=== PATIENT | female | born 1975 | race African-American/Black ===

== ENCOUNTER 2021-09-06 13:49 | Inpatient (IN) | payer OTHER ==
[2021-09-06 14:33] LABS: EPI CELLS 9 /uL (0-25.1); HYALINE CASTS 7 /uL (0-3.1); PH,URINE 5.5 (5.0-8.0); URINE APPEARANCE CLOUDY; URINE BACTERIA >9,000 /uL (0-1359); URINE BILIRUBIN NEGATIVE (NEGATIVE); URINE COLOR YELLOW; URINE GLUCOSE (UA) NEGATIVE (NEGATIVE); URINE KETONE NEGATIVE (NEGATIVE); URINE LEUK ESTERASE 1+ (NEGATIVE); URINE NITRITE NEGATIVE (NEGATIVE); URINE PROTEIN NEGATIVE (NEGATIVE); URINE RBC 8 /uL (0-23.9); URINE UROBILINOGEN 0.2 mg/dL (0.2-1.0); URINE WBC 200 /uL (0-25.8)
[2021-09-06] MEDS ORDERED: SODIUM CHLORIDE 0.9% 500 ML INFUS.BAG IV ONE (15:17)
[2021-09-06] MEDS ORDERED: CEFTRIAXONE 1,000 MG in DEXTROSE 5%-WATER - 50 ML IVPB ONE (15:17)
[2021-09-06 15:18] LABS: BASO % 1.1 % (0-2.0); EOS % 3.1 % (0-4.5); HEMATOCRIT 39.1 % (32.4-45.2); HEMOGLOBIN 13.2 GM/dL (10.7-15.3); LYMPH % 49.5 % (8-40); MCH 32.9 pg (25.7-33.7); MCHC 33.9 g/dl (32.0-36.0); MEAN CELL VOLUME 97.2 fl (80-96); MEAN PLT VOLUME 9.1 fl (7.5-11.1); MONO % 9.2 % (3.8-10.2); NEUT % 37.1 % (42.8-82.8); PLATELET COUNT 264 10^3/uL (134-434); RBC 4.02 M/mm3 (3.60-5.2); WHITE BLOOD COUNT 3.2 K/mm3 (4.0-10.0)
[2021-09-06 15:19] LABS: VENOUS BASE EXCESS 1.6 mmol/L (-2-2); VENOUS PCO2 41.3 mmHg (38-52)
[2021-09-06 15:21] LABS: VENOUS PH 7.42 (7.310-7.410)
[2021-09-06 15:25] LABS: INR 1.07 (0.83-1.09); PROTHROMBIN TIME (PATIENT) 12.3 SEC (9.7-13.0)
[2021-09-06 15:28] LABS: ACTIVATED PTT 37.9 SECONDS (25.2-36.5)
[2021-09-06] MEDS ORDERED: CEFTRIAXONE 1 GM/50 ML BAG ONE (15:28)
[2021-09-06 15:43] LABS: CALCIUM 9.2 mg/dL (8.5-10.1)
[2021-09-06 15:44] LABS: ALBUMIN 3.7 g/dl (3.4-5.0); BLOOD UREA NITROGEN 7.2 mg/dL (7-18)
[2021-09-06 15:47] LABS: CREATININE 0.4 mg/dL (0.55-1.3)
[2021-09-06 15:49] LABS: BILIRUBIN,TOTAL 0.1 mg/dL (0.2-1)
[2021-09-06] MEDS ORDERED: diazePAM RECTAL GEL 10 MG KIT (PRE-CALIBRATED) RC PRN (17:28)
[2021-09-06] MEDS: BACLOFEN 10 MG TABLET (FP) GT SCH ×2 (21:50→23:58)
[2021-09-06] MEDS: POLYETHYLENE GLYCOL (HEALTHYLAX) 3350 17 GM PACKET GT SCH (21:50)
[2021-09-06] MEDS ORDERED: POLYETHYLENE GLYCOL (HEALTHYLAX) 3350 17 GM PACKET ONE (21:51)
[2021-09-06] MEDS ORDERED: BACLOFEN 10 MG TABLET (FP) ONE (21:51)
[2021-09-06] MEDS ORDERED: PATIENT'S OWN MEDICATION (NON-FORMULARY) (Olopatadine Hcl [Pataday] 2.5 ML Drops) OU SCH (22:00)
[2021-09-06] MEDS: CALCIUM 500MG/VIT-D 200 UNITS COMBO TABLET (FP) GT SCH (23:57)
[2021-09-06] MEDS: diazePAM 2 MG TABLET GT SCH (23:59)
[2021-09-06] MEDS: Lacosamide 50 MG/5 ML ORAL SOLUTION UNIT CUPS GT SCH (23:59)
[2021-09-07] MEDS: TIZANIDINE HCL 4 MG TABLET GT SCH ×3 (00:09→21:03)
[2021-09-07] MEDS: diazePAM 2 MG TABLET GT SCH ×3 (06:29→21:03)
[2021-09-07 08:10] LABS: HEMATOCRIT 36.4 % (32.4-45.2); HEMOGLOBIN 12.5 GM/dL (10.7-15.3); MCH 33.8 pg (25.7-33.7); MCHC 34.5 g/dl (32.0-36.0); MEAN CELL VOLUME 98.1 fl (80-96); MEAN PLT VOLUME 8.9 fl (7.5-11.1); PLATELET COUNT 219 10^3/uL (134-434); RBC 3.71 M/mm3 (3.60-5.2); WHITE BLOOD COUNT 3.1 K/mm3 (4.0-10.0)
[2021-09-07 08:15] LABS: CALCIUM 8.4 mg/dL (8.5-10.1)
[2021-09-07 08:18] LABS: CREATININE 0.3 mg/dL (0.55-1.3)
[2021-09-07 08:20] LABS: BILIRUBIN,TOTAL 0.2 mg/dL (0.2-1); TOT PROT 6.8 g/dl (6.4-8.2)
[2021-09-07] MEDS ORDERED: DEXTROSE 5%-WATER - 50 ML IVPB ONE (09:29)
[2021-09-07] MEDS ORDERED: cefTRIAXone SODIUM 1 GM VIAL ONE (09:29)
[2021-09-07] MEDS: CEFTRIAXONE 1 GM in DEXTROSE 5%-WATER - 50 ML IVPB SCH (09:41)
[2021-09-07] MEDS: BACLOFEN 10 MG TABLET (FP) GT SCH ×4 (09:42→21:02)
[2021-09-07] MEDS: CALCIUM 500MG/VIT-D 200 UNITS COMBO TABLET (FP) GT SCH ×2 (09:42→21:02)
[2021-09-07] MEDS: Lacosamide 50 MG/5 ML ORAL SOLUTION UNIT CUPS GT SCH ×2 (09:43→21:03)
[2021-09-07] MEDS: ENOXAPARIN NA (PORCINE) 40 MG/0.4 ML DISP.SYRIN SQ SCH (09:43)
[2021-09-07] MEDS: LORATADINE 10 MG TABLET GT SCH (09:43)
[2021-09-07] MEDS: MULTIVIT-MINERALS ORAL LIQUID GT SCH (11:31)
[2021-09-07 15:44] VITALS: BMI 19.5
[2021-09-07] MEDS: POLYETHYLENE GLYCOL (HEALTHYLAX) 3350 17 GM PACKET GT SCH (17:51)
[2021-09-07] MEDS ORDERED: VANCOMYCIN 1 GM/200 ML PREMIX BAG IVPB ONE (20:04)
[2021-09-07] MEDS: RUFINAMIDE 40 MG/ML GT SCH (21:06)
[2021-09-08] MEDS: diazePAM 2 MG TABLET GT SCH ×3 (05:30→22:33)
[2021-09-08] MEDS: RUFINAMIDE 40 MG/ML GT SCH ×4 (05:51→22:32)
[2021-09-08 09:25] LABS: BASO % 1.2 % (0-2.0); EOS % 2.8 % (0-4.5); HEMATOCRIT 36.6 % (32.4-45.2); HEMOGLOBIN 12.4 GM/dL (10.7-15.3); LYMPH % 35.6 % (8-40); MCH 33.4 pg (25.7-33.7); MEAN CELL VOLUME 98.4 fl (80-96); MEAN PLT VOLUME 9.1 fl (7.5-11.1); MONO % 8.9 % (3.8-10.2); NEUT % 51.5 % (42.8-82.8); PLATELET COUNT 250 10^3/uL (134-434); RBC 3.72 M/mm3 (3.60-5.2); RDW 16.7 % (11.6-15.6); WHITE BLOOD COUNT 3.1 K/mm3 (4.0-10.0)
[2021-09-08 09:46] LABS: BLOOD UREA NITROGEN 5.6 mg/dL (7-18)
[2021-09-08 09:50] LABS: CALCIUM 8.3 mg/dL (8.5-10.1); CREATININE 0.3 mg/dL (0.55-1.3)
[2021-09-08] MEDS ORDERED: cefTRIAXone SODIUM 1 GM VIAL ONE (09:58)
[2021-09-08] MEDS ORDERED: DEXTROSE 5%-WATER - 50 ML IVPB ONE (09:58)
[2021-09-08] MEDS: CEFTRIAXONE 1 GM in DEXTROSE 5%-WATER - 50 ML IVPB SCH (10:05)
[2021-09-08] MEDS: ENOXAPARIN NA (PORCINE) 40 MG/0.4 ML DISP.SYRIN SQ SCH (10:05)
[2021-09-08] MEDS: BACLOFEN 10 MG TABLET (FP) GT SCH ×4 (10:06→22:32)
[2021-09-08] MEDS: LORATADINE 10 MG TABLET GT SCH (10:06)
[2021-09-08] MEDS: CALCIUM 500MG/VIT-D 200 UNITS COMBO TABLET (FP) GT SCH ×2 (10:06→22:32)
[2021-09-08] MEDS: MULTIVIT-MINERALS ORAL LIQUID GT SCH (10:06)
[2021-09-08] MEDS: TIZANIDINE HCL 4 MG TABLET GT SCH ×2 (10:06→22:32)
[2021-09-08] MEDS: Lacosamide 50 MG/5 ML ORAL SOLUTION UNIT CUPS GT SCH ×2 (10:06→22:33)
[2021-09-08] MEDS: POLYETHYLENE GLYCOL (HEALTHYLAX) 3350 17 GM PACKET GT SCH (17:00)
[2021-09-09] MEDS: diazePAM 2 MG TABLET GT SCH ×3 (05:47→22:15)
[2021-09-09 08:45] LABS: BASO % 0.5 % (0-2.0); HEMATOCRIT 37.2 % (32.4-45.2); HEMOGLOBIN 12.5 GM/dL (10.7-15.3); LYMPH % 20.9 % (8-40); MCH 33.1 pg (25.7-33.7); MCHC 33.7 g/dl (32.0-36.0); MEAN CELL VOLUME 98.2 fl (80-96); MEAN PLT VOLUME 9.1 fl (7.5-11.1); NEUT % 70.6 % (42.8-82.8); PLATELET COUNT 239 10^3/uL (134-434); RBC 3.79 M/mm3 (3.60-5.2); RDW 16.8 % (11.6-15.6); WHITE BLOOD COUNT 3.7 K/mm3 (4.0-10.0)
[2021-09-09 09:01] LABS: CALCIUM 8.7 mg/dL (8.5-10.1)
[2021-09-09 09:02] LABS: ALBUMIN 3.3 g/dl (3.4-5.0); BLOOD UREA NITROGEN 4.8 mg/dL (7-18); MAGNESIUM 2.3 mg/dL (1.8-2.4)
[2021-09-09 09:05] LABS: CREATININE 0.3 mg/dL (0.55-1.3); PHOSPHOROUS 2.6 mg/dL (2.5-4.9)
[2021-09-09 09:06] LABS: BILIRUBIN,TOTAL 0.2 mg/dL (0.2-1); TOT PROT 7.3 g/dl (6.4-8.2)
[2021-09-09] MEDS ORDERED: cefTRIAXone SODIUM 1 GM VIAL ONE (10:23)
[2021-09-09] MEDS ORDERED: DEXTROSE 5%-WATER - 50 ML IVPB ONE (10:23)
[2021-09-09] MEDS: CEFTRIAXONE 1 GM in DEXTROSE 5%-WATER - 50 ML IVPB SCH (10:28)
[2021-09-09] MEDS: MULTIVIT-MINERALS ORAL LIQUID GT SCH (10:29)
[2021-09-09] MEDS: LORATADINE 10 MG TABLET GT SCH (10:30)
[2021-09-09] MEDS: BACLOFEN 10 MG TABLET (FP) GT SCH ×4 (10:30→22:06)
[2021-09-09] MEDS: CALCIUM 500MG/VIT-D 200 UNITS COMBO TABLET (FP) GT SCH ×2 (10:31→22:06)
[2021-09-09] MEDS: TIZANIDINE HCL 4 MG TABLET GT SCH ×2 (10:32→22:06)
[2021-09-09] MEDS: RUFINAMIDE 40 MG/ML GT SCH ×2 (10:32→22:05)
[2021-09-09] MEDS: ENOXAPARIN NA (PORCINE) 40 MG/0.4 ML DISP.SYRIN SQ SCH (10:33)
[2021-09-09] MEDS: Lacosamide 50 MG/5 ML ORAL SOLUTION UNIT CUPS GT SCH ×2 (10:33→22:05)
[2021-09-09] MEDS: POLYETHYLENE GLYCOL (HEALTHYLAX) 3350 17 GM PACKET GT SCH (18:03)
[2021-09-10] MEDS: diazePAM 2 MG TABLET GT SCH ×3 (07:55→22:56)
[2021-09-10 08:31] LABS: BASO % 0.6 % (0-2.0); EOS % 1.5 % (0-4.5); HEMATOCRIT 35.1 % (32.4-45.2); HEMOGLOBIN 11.8 GM/dL (10.7-15.3); LYMPH % 25.4 % (8-40); MCH 33.2 pg (25.7-33.7); MCHC 33.6 g/dl (32.0-36.0); MEAN PLT VOLUME 9.2 fl (7.5-11.1); MONO % 6.8 % (3.8-10.2); NEUT % 65.7 % (42.8-82.8); PLATELET COUNT 226 10^3/uL (134-434); RBC 3.55 M/mm3 (3.60-5.2); WHITE BLOOD COUNT 5.3 K/mm3 (4.0-10.0)
[2021-09-10 08:46] LABS: BLOOD UREA NITROGEN 10.2 mg/dL (7-18); CALCIUM 8.6 mg/dL (8.5-10.1)
[2021-09-10 08:49] LABS: CREATININE 0.3 mg/dL (0.55-1.3)
[2021-09-10] MEDS ORDERED: predniSONE 20 MG TABLET (UD) PO SCH (10:00)
[2021-09-10] MEDS: MULTIVIT-MINERALS ORAL LIQUID GT SCH (10:50)
[2021-09-10] MEDS: LORATADINE 10 MG TABLET GT SCH (10:50)
[2021-09-10] MEDS: BACLOFEN 10 MG TABLET (FP) GT SCH ×4 (10:50→22:55)
[2021-09-10] MEDS: CALCIUM 500MG/VIT-D 200 UNITS COMBO TABLET (FP) GT SCH ×2 (10:51→22:55)
[2021-09-10] MEDS: Lacosamide 50 MG/5 ML ORAL SOLUTION UNIT CUPS GT SCH ×2 (10:52→22:56)
[2021-09-10] MEDS: TIZANIDINE HCL 4 MG TABLET GT SCH ×2 (10:52→22:55)
[2021-09-10] MEDS: RUFINAMIDE 40 MG/ML GT SCH ×2 (10:52→22:56)
[2021-09-10] MEDS: ENOXAPARIN NA (PORCINE) 40 MG/0.4 ML DISP.SYRIN SQ SCH (10:53)
[2021-09-10] MEDS ORDERED: cefTRIAXone SODIUM 1 GM VIAL ONE (11:08)
[2021-09-10] MEDS ORDERED: DEXTROSE 5%-WATER - 50 ML IVPB ONE (11:08)
[2021-09-10] MEDS: CEFTRIAXONE 1 GM in DEXTROSE 5%-WATER - 50 ML IVPB SCH (11:15)
[2021-09-10] MEDS: POLYETHYLENE GLYCOL (HEALTHYLAX) 3350 17 GM PACKET GT SCH (17:49)
[2021-09-11] MEDS: diazePAM 2 MG TABLET GT SCH ×2 (06:18→13:47)
[2021-09-11 08:17] LABS: BASO % 0.7 % (0-2.0); EOS % 2.4 % (0-4.5); HEMATOCRIT 36.1 % (32.4-45.2); HEMOGLOBIN 12.1 GM/dL (10.7-15.3); LYMPH % 49.3 % (8-40); MCH 33.2 pg (25.7-33.7); MCHC 33.6 g/dl (32.0-36.0); MONO % 10.9 % (3.8-10.2); NEUT % 36.7 % (42.8-82.8); PLATELET COUNT 231 10^3/uL (134-434); RBC 3.64 M/mm3 (3.60-5.2); RDW 17.1 % (11.6-15.6); WHITE BLOOD COUNT 3.9 K/mm3 (4.0-10.0)
[2021-09-11 08:42] LABS: BLOOD UREA NITROGEN 9.2 mg/dL (7-18)
[2021-09-11 08:45] LABS: CREATININE 0.3 mg/dL (0.55-1.3)
[2021-09-11] MEDS ORDERED: cefTRIAXone SODIUM 1 GM VIAL ONE (09:13)
[2021-09-11] MEDS ORDERED: DEXTROSE 5%-WATER - 50 ML IVPB ONE (09:14)
[2021-09-11] MEDS: ENOXAPARIN NA (PORCINE) 40 MG/0.4 ML DISP.SYRIN SQ SCH (09:19)
[2021-09-11] MEDS: Lacosamide 50 MG/5 ML ORAL SOLUTION UNIT CUPS GT SCH (09:19)
[2021-09-11] MEDS: CEFTRIAXONE 1 GM in DEXTROSE 5%-WATER - 50 ML IVPB SCH (09:19)
[2021-09-11] MEDS: MULTIVIT-MINERALS ORAL LIQUID GT SCH (09:20)
[2021-09-11] MEDS: BACLOFEN 10 MG TABLET (FP) GT SCH ×2 (09:20→13:47)
[2021-09-11] MEDS: CALCIUM 500MG/VIT-D 200 UNITS COMBO TABLET (FP) GT SCH (09:20)
[2021-09-11] MEDS: LORATADINE 10 MG TABLET GT SCH (09:20)
[2021-09-11] MEDS: RUFINAMIDE 40 MG/ML GT SCH (09:21)
[2021-09-11] MEDS: TIZANIDINE HCL 4 MG TABLET GT SCH (09:21)
[2021-09-11] MEDS ORDERED: CEPHALEXIN MONOHYDRATE 500 MG CAPSULE (UD) GT SCH (12:00)
[2021-09-11 14:27] VITALS: BP 140/88; PULSE 90; TEMP 97.9
== END 2021-09-11 18:02 | disposition home or self-care (01) | DRG 871 ==
LOC: JER 13:49 → JERBED 16:47 → J8W 22:31 → OBSVTOIN 09-09 08:28
PROVIDERS: ADMIT Internal Medicine; ATTEND Internal Medicine
DX: A41.9 Sepsis, unspecified organism (principal); R53.2 Functional quadriplegia; N39.0 Urinary tract infection, site not specified; G40.909 Epilepsy, unspecified, not intractable, without status epilepticus; G80.9 Cerebral palsy, unspecified; Z93.1 Gastrostomy status; R62.50 Unspecified lack of expected normal physiological development in childhood; B96.1 Klebsiella pneumoniae [K. pneumoniae] as the cause of diseases classified elsewhere; F79 Unspecified intellectual disabilities
CPT/HCPCS: 36415; 71045-TC-FY; 80048; 80053; 81003; 82803; 83605; 83735; 84100; 85025; 85027; 85610; 85730; 87040; 87081; 87086; 87186; 87804; 87807; 93005; 93010; 99285-25; C9803-CS; G0378; J0475; U0003; U0005

== ENCOUNTER 2023-01-10 08:51 | Inpatient (IN) | payer OTHER ==
[2023-01-10] MEDS ORDERED: LACTATED RINGERS SOLUTION 1000 ML INFUS.BAG IV ONE (09:55)
[2023-01-10 10:01] LABS: VENOUS BASE EXCESS 3.7 mmol/L (-2-2); VENOUS O2 SATURATION 82.2 % (70-80); VENOUS PCO2 50.5 mmHg (38-52); VENOUS PH 7.389 (7.310-7.410)
[2023-01-10 10:07] VITALS: BMI 19.5
[2023-01-10 10:13] LABS: EPI CELLS 20 /uL (0-25.1); HYALINE CASTS 1 /uL (0-3.1); PH,URINE 5.5 (5.0-8.0); URINE APPEARANCE CLEAR; URINE BACTERIA >9,000 /uL (0-1359); URINE BILIRUBIN NEGATIVE (NEGATIVE); URINE COLOR YELLOW; URINE GLUCOSE (UA) NEGATIVE (NEGATIVE); URINE KETONE NEGATIVE (NEGATIVE); URINE LEUK ESTERASE 1+ (NEGATIVE); URINE NITRITE POSITIVE (NEGATIVE); URINE PROTEIN TRACE (NEGATIVE); URINE RBC 16 /uL (0-23.9); URINE WBC 31 /uL (0-25.8)
[2023-01-10 10:16] LABS: HEMATOCRIT 40.5 % (32.4-45.2); HEMOGLOBIN 14.1 GM/dL (10.7-15.3); MCH 33.8 pg (25.7-33.7); MCHC 34.9 g/dl (32.0-36.0); MEAN CELL VOLUME 97.1 fl (80-96); MEAN PLT VOLUME 9.7 fl (7.5-11.1); PLATELET COUNT 118 10^3/uL (134-434); RBC 4.17 M/mm3 (3.60-5.2); RDW 16.1 % (11.6-15.6); WHITE BLOOD COUNT 4.3 K/mm3 (4.0-10.0)
[2023-01-10 10:17] LABS: INR 1.09 (0.83-1.09); PROTHROMBIN TIME (PATIENT) 12.6 SEC (9.7-13.0)
[2023-01-10 10:20] LABS: ACTIVATED PTT 33.5 SECONDS (25.2-36.5)
[2023-01-10 10:35] LABS: CHLORIDE 100 mmol/L (98-107); SODIUM 136 mmol/L (136-145)
[2023-01-10 10:36] LABS: ALBUMIN 3.1 g/dl (3.4-5.0); BLOOD UREA NITROGEN 15.5 mg/dL (7-18); CALCIUM 9.7 mg/dL (8.5-10.1); CO2 28 mmol/L (21-32); GLUCOSE,RANDOM 79 mg/dL (74-106)
[2023-01-10 10:40] LABS: BILIRUBIN,TOTAL 0.2 mg/dL (0.2-1); CREATININE 0.6 mg/dL (0.55-1.3); SGOT/AST 126 U/L (15-37)
[2023-01-10 10:43] LABS: ALK PHOS 166 U/L (45-117)
[2023-01-10 10:51] LABS: ANION GAP 8 MMOL/L (8-16); LACTIC ACID 2.4 mmol/L (0.4-2.0); POTASSIUM 6.7 mmol/L (3.5-5.1); SGPT/ALT 87 U/L (13-61)
[2023-01-10] MEDS ORDERED: DEXAMETHASONE SOD PHOSPHATE 10 MG/1 ML VIAL IVPUSH ONE (11:14)
[2023-01-10] MEDS: ALBUTEROL SO4 2.5/IPRATROPIUM 0.5 INH SOL 3 ML VIAL.NEB. NEB SCH ×3 (11:15→11:41)
[2023-01-10] MEDS ORDERED: DEXAMETHASONE SOD PHOSPHATE 10 MG/1 ML VIAL ONE (11:18)
[2023-01-10] MEDS ORDERED: CEFTRIAXONE 1 GM/50 ML BAG ONE (11:20)
[2023-01-10 11:45] LABS: ANISOCYTOSIS 0; MACROCYTOSIS 0
[2023-01-10 12:10] LABS: CALCIUM 9.6 mg/dL (8.5-10.1); POTASSIUM 4.4 mmol/L (3.5-5.1)
[2023-01-10 12:12] LABS: BLOOD UREA NITROGEN 14.7 mg/dL (7-18)
[2023-01-10 12:14] LABS: CREATININE 0.5 mg/dL (0.55-1.3)
[2023-01-10 12:20] LABS: LACTIC ACID 2.8 mmol/L (0.4-2.0)
[2023-01-10] MEDS: LACTATED RINGERS SOLUTION 1,000 ML IV SCH (12:59)
[2023-01-10] MEDS ORDERED: SODIUM CHLORIDE 0.9% 500 ML INFUS.BAG IV ONE (13:06)
[2023-01-10] MEDS: diazePAM 2 MG TABLET GT SCH ×2 (14:53→21:59)
[2023-01-10] MEDS: BACLOFEN 10 MG TABLET (FP) GT SCH ×3 (14:53→21:59)
[2023-01-10] MEDS: Lacosamide 50 MG/5 ML ORAL SOLUTION UNIT CUPS GT SCH (21:59)
[2023-01-10] MEDS: HEPARIN NA (PORCINE) 5,000 UNITS/ML 1ML VIAL SQ SCH (21:59)
[2023-01-11] MEDS: LACTATED RINGERS SOLUTION 1,000 ML IV SCH (01:57)
[2023-01-11] MEDS: diazePAM 2 MG TABLET GT SCH ×3 (05:47→22:54)
[2023-01-11 08:17] LABS: BASO % 0.2 % (0-2.0); EOS % 0.1 % (0-4.5); HEMATOCRIT 32.3 % (32.4-45.2); HEMOGLOBIN 10.9 GM/dL (10.7-15.3); LYMPH % 10.4 % (8-40); MCH 33.6 pg (25.7-33.7); MCHC 33.8 g/dl (32.0-36.0); MEAN CELL VOLUME 99.4 fl (80-96); MEAN PLT VOLUME 10.5 fl (7.5-11.1); MONO % 3.9 % (3.8-10.2); NEUT % 85.4 % (42.8-82.8); PLATELET COUNT 113 10^3/uL (134-434); RBC 3.25 M/mm3 (3.60-5.2); RDW 15.8 % (11.6-15.6); WHITE BLOOD COUNT 11.8 K/mm3 (4.0-10.0)
[2023-01-11 08:22] LABS: INR 1.2 (0.83-1.09); PROTHROMBIN TIME (PATIENT) 13.9 SEC (9.7-13.0)
[2023-01-11 08:25] LABS: ACTIVATED PTT 35.8 SECONDS (25.2-36.5)
[2023-01-11 08:33] LABS: POTASSIUM 3.9 mmol/L (3.5-5.1)
[2023-01-11 08:35] LABS: BLOOD UREA NITROGEN 9.3 mg/dL (7-18); CALCIUM 8.6 mg/dL (8.5-10.1); MAGNESIUM 1.7 mg/dL (1.8-2.4)
[2023-01-11 08:38] LABS: CREATININE 0.3 mg/dL (0.55-1.3)
[2023-01-11 08:39] LABS: BILIRUBIN,TOTAL 0.4 mg/dL (0.2-1)
[2023-01-11 08:44] LABS: N-TERMINAL BNP 250.4 pg/ml (5-125)
[2023-01-11 08:45] LABS: ALBUMIN 2.4 g/dl (3.4-5.0); TOT PROT 5.9 g/dl (6.4-8.2)
[2023-01-11] MEDS ORDERED: Lacosamide 50 MG/5 ML ORAL SOLUTION UNIT CUPS GT SCH (10:00)
[2023-01-11] MEDS: POLYETHYLENE GLYCOL (HEALTHYLAX) 3350 17 GM PACKET GT SCH (10:30)
[2023-01-11] MEDS: CEFTRIAXONE 1 GM in DEXTROSE 5%-WATER - 50 ML IVPB SCH (10:30)
[2023-01-11] MEDS: BACLOFEN 10 MG TABLET (FP) GT SCH ×4 (10:31→22:54)
[2023-01-11] MEDS: HEPARIN NA (PORCINE) 5,000 UNITS/ML 1ML VIAL SQ SCH ×2 (10:31→22:54)
[2023-01-11] MEDS: DEXAMETHASONE SOD PHOSPHATE 10 MG/1 ML VIAL IVPUSH SCH (10:33)
[2023-01-11] MEDS: Lacosamide 50 MG/5 ML ORAL SOLUTION UNIT CUPS GT SCH ×2 (10:34→22:55)
[2023-01-11] MEDS ORDERED: ALBUTEROL SO4 2.5/IPRATROPIUM 0.5 INH SOL 3 ML VIAL.NEB. NEB PRN (11:36)
[2023-01-11] MEDS ORDERED: REMDESIVIR 200 MG in SODIUM CHLORIDE 250 ML IVPB ONE (12:00)
[2023-01-12] MEDS: diazePAM 2 MG TABLET GT SCH ×3 (06:45→22:40)
[2023-01-12 08:21] LABS: BASO % 0.2 % (0-2.0); EOS % 0.2 % (0-4.5); HEMATOCRIT 30.7 % (32.4-45.2); HEMOGLOBIN 10.4 GM/dL (10.7-15.3); LYMPH % 17.2 % (8-40); MCH 33.7 pg (25.7-33.7); MCHC 33.8 g/dl (32.0-36.0); MEAN CELL VOLUME 99.5 fl (80-96); MEAN PLT VOLUME 10.2 fl (7.5-11.1); MONO % 4.8 % (3.8-10.2); NEUT % 77.6 % (42.8-82.8); PLATELET COUNT 106 10^3/uL (134-434); RBC 3.08 M/mm3 (3.60-5.2); RDW 16.4 % (11.6-15.6); WHITE BLOOD COUNT 9.8 K/mm3 (4.0-10.0)
[2023-01-12 09:13] LABS: ALBUMIN 2.5 g/dl (3.4-5.0); BILIRUBIN,TOTAL 0.1 mg/dL (0.2-1); BLOOD UREA NITROGEN 12.1 mg/dL (7-18); CALCIUM 8.5 mg/dL (8.5-10.1); CREATININE 0.3 mg/dL (0.55-1.3); MAGNESIUM 1.9 mg/dL (1.8-2.4); POTASSIUM 3.8 mmol/L (3.5-5.1); TOT PROT 6.1 g/dl (6.4-8.2)
[2023-01-12] MEDS: CEFTRIAXONE 1 GM in DEXTROSE 5%-WATER - 50 ML IVPB SCH (10:32)
[2023-01-12] MEDS: BACLOFEN 10 MG TABLET (FP) GT SCH ×4 (10:33→22:40)
[2023-01-12] MEDS: HEPARIN NA (PORCINE) 5,000 UNITS/ML 1ML VIAL SQ SCH ×2 (10:33→22:40)
[2023-01-12] MEDS: POLYETHYLENE GLYCOL (HEALTHYLAX) 3350 17 GM PACKET GT SCH (10:34)
[2023-01-12] MEDS: DEXAMETHASONE SOD PHOSPHATE 10 MG/1 ML VIAL IVPUSH SCH (10:34)
[2023-01-12] MEDS: Lacosamide 50 MG/5 ML ORAL SOLUTION UNIT CUPS GT SCH ×2 (10:34→22:40)
[2023-01-12] MEDS: REMDESIVIR 100 MG in SODIUM CHLORIDE 250 ML IVPB SCH (13:24)
[2023-01-12] MEDS: SCOPOLAMINE HYDROBROMIDE 1 PATCH PATCH.TD72 TD SCH (17:51)
[2023-01-13] MEDS: diazePAM 2 MG TABLET GT SCH ×3 (05:38→21:44)
[2023-01-13] MEDS: POLYETHYLENE GLYCOL (HEALTHYLAX) 3350 17 GM PACKET GT SCH (09:58)
[2023-01-13] MEDS: Lacosamide 50 MG/5 ML ORAL SOLUTION UNIT CUPS GT SCH ×2 (09:58→21:43)
[2023-01-13] MEDS: HEPARIN NA (PORCINE) 5,000 UNITS/ML 1ML VIAL SQ SCH ×2 (09:59→21:43)
[2023-01-13] MEDS: CEFTRIAXONE 1 GM in DEXTROSE 5%-WATER - 50 ML IVPB SCH (10:52)
[2023-01-13] MEDS: BACLOFEN 10 MG TABLET (FP) GT SCH ×4 (10:53→21:51)
[2023-01-13] MEDS: DEXAMETHASONE 2 MG TABLET PEG SCH (11:02)
[2023-01-13] MEDS: REMDESIVIR 100 MG in SODIUM CHLORIDE 250 ML IVPB SCH (11:18)
[2023-01-13] MEDS ORDERED: hydrALAZINE HCL 20 MG/ML VIAL IVPB PRN (14:26)
[2023-01-13] MEDS ORDERED: FUROSEMIDE 20 MG TABLET (FP) PO ONE (14:32)
[2023-01-13] MEDS: amLODIPine BESYLATE 2.5 MG TABLET (FP) PO SCH (17:15)
[2023-01-14] MEDS: diazePAM 2 MG TABLET GT SCH ×3 (06:07→23:13)
[2023-01-14 08:58] LABS: ALBUMIN 2.4 g/dl (3.4-5.0)
[2023-01-14 09:01] LABS: BILIRUBIN,DIRECT 0.1 mg/dL (0.0-0.2); SGOT/AST 240 U/L (15-37); SGPT/ALT 402 U/L (13-61)
[2023-01-14 09:03] LABS: BILIRUBIN,TOTAL < 0.1 mg/dL (0.2-1); TOT PROT 5.9 g/dl (6.4-8.2)
[2023-01-14 09:06] LABS: ALK PHOS 307 U/L (45-117)
[2023-01-14] MEDS: Lacosamide 50 MG/5 ML ORAL SOLUTION UNIT CUPS GT SCH ×2 (10:47→23:13)
[2023-01-14] MEDS: CEFTRIAXONE 1 GM in DEXTROSE 5%-WATER - 50 ML IVPB SCH (10:48)
[2023-01-14] MEDS: BACLOFEN 10 MG TABLET (FP) GT SCH ×4 (10:48→23:13)
[2023-01-14] MEDS: amLODIPine BESYLATE 2.5 MG TABLET (FP) PO SCH (10:48)
[2023-01-14] MEDS: HEPARIN NA (PORCINE) 5,000 UNITS/ML 1ML VIAL SQ SCH ×2 (10:48→23:11)
[2023-01-14] MEDS: POLYETHYLENE GLYCOL (HEALTHYLAX) 3350 17 GM PACKET GT SCH (10:48)
[2023-01-14] MEDS: COLLAGENASE CLOSTRIDIUM HIST. 30 GRAMS TUBE TP SCH (11:33)
[2023-01-14] MEDS: DEXAMETHASONE 2 MG TABLET PEG SCH (11:33)
[2023-01-14] MEDS: REMDESIVIR 100 MG in SODIUM CHLORIDE 250 ML IVPB SCH (11:34)
[2023-01-15] MEDS: diazePAM 2 MG TABLET GT SCH ×3 (05:29→22:53)
[2023-01-15 07:24] LABS: HEMATOCRIT 35.1 % (32.4-45.2); HEMOGLOBIN 11.7 GM/dL (10.7-15.3); MCH 33.6 pg (25.7-33.7); MCHC 33.4 g/dl (32.0-36.0); MEAN CELL VOLUME 100.5 fl (80-96); MEAN PLT VOLUME 10.5 fl (7.5-11.1); PLATELET COUNT 131 10^3/uL (134-434); RDW 15.4 % (11.6-15.6); WHITE BLOOD COUNT 6.7 K/mm3 (4.0-10.0)
[2023-01-15 08:11] LABS: ALBUMIN 2.5 g/dl (3.4-5.0); BILIRUBIN,TOTAL 0.2 mg/dL (0.2-1); BLOOD UREA NITROGEN 12.2 mg/dL (7-18); CALCIUM 8.4 mg/dL (8.5-10.1); CREATININE 0.3 mg/dL (0.55-1.3); MAGNESIUM 1.9 mg/dL (1.8-2.4); POTASSIUM 3.8 mmol/L (3.5-5.1); TOT PROT 6.2 g/dl (6.4-8.2)
[2023-01-15 08:40] LABS: ANISOCYTOSIS 1+; MACROCYTOSIS 0
[2023-01-15] MEDS: Lacosamide 50 MG/5 ML ORAL SOLUTION UNIT CUPS GT SCH ×2 (10:51→22:52)
[2023-01-15] MEDS: HEPARIN NA (PORCINE) 5,000 UNITS/ML 1ML VIAL SQ SCH ×2 (10:51→22:52)
[2023-01-15] MEDS: CEFTRIAXONE 1 GM in DEXTROSE 5%-WATER - 50 ML IVPB SCH (10:51)
[2023-01-15] MEDS: amLODIPine BESYLATE 2.5 MG TABLET (FP) GT SCH (10:52)
[2023-01-15] MEDS: BACLOFEN 10 MG TABLET (FP) GT SCH ×4 (10:52→22:51)
[2023-01-15] MEDS: COLLAGENASE CLOSTRIDIUM HIST. 30 GRAMS TUBE TP SCH (10:52)
[2023-01-15] MEDS: POLYETHYLENE GLYCOL (HEALTHYLAX) 3350 17 GM PACKET GT SCH (10:52)
[2023-01-15] MEDS: DEXAMETHASONE 2 MG TABLET PEG SCH (11:00)
[2023-01-15] MEDS: SCOPOLAMINE HYDROBROMIDE 1 PATCH PATCH.TD72 TD SCH (17:38)
[2023-01-16] MEDS: ACETAMINOPHEN 650 MG/20.3 ML ORAL SOLUTION (CUPS) GT PRN (05:06)
[2023-01-16] MEDS: diazePAM 2 MG TABLET GT SCH ×3 (05:06→23:05)
[2023-01-16 07:42] LABS: HEMATOCRIT 35.4 % (32.4-45.2); MCH 34.1 pg (25.7-33.7); MCHC 33.9 g/dl (32.0-36.0); MEAN CELL VOLUME 100.7 fl (80-96); MEAN PLT VOLUME 10.9 fl (7.5-11.1); PLATELET COUNT 147 10^3/uL (134-434); RBC 3.51 M/mm3 (3.60-5.2); RDW 15.6 % (11.6-15.6); WHITE BLOOD COUNT 7.9 K/mm3 (4.0-10.0)
[2023-01-16 07:58] LABS: ALBUMIN 2.5 g/dl (3.4-5.0); CALCIUM 8.1 mg/dL (8.5-10.1)
[2023-01-16 07:59] LABS: BLOOD UREA NITROGEN 15.4 mg/dL (7-18)
[2023-01-16 08:01] LABS: CREATININE 0.3 mg/dL (0.55-1.3)
[2023-01-16 08:02] LABS: BILIRUBIN,TOTAL 0.2 mg/dL (0.2-1)
[2023-01-16 09:06] LABS: ANISOCYTOSIS 1+; MACROCYTOSIS 1+
[2023-01-16] MEDS: CEFTRIAXONE 1 GM in DEXTROSE 5%-WATER - 50 ML IVPB SCH (10:05)
[2023-01-16] MEDS: Lacosamide 50 MG/5 ML ORAL SOLUTION UNIT CUPS GT SCH ×2 (10:05→23:05)
[2023-01-16] MEDS: HEPARIN NA (PORCINE) 5,000 UNITS/ML 1ML VIAL SQ SCH ×2 (10:05→23:06)
[2023-01-16] MEDS: POLYETHYLENE GLYCOL (HEALTHYLAX) 3350 17 GM PACKET GT SCH (10:06)
[2023-01-16] MEDS: amLODIPine BESYLATE 2.5 MG TABLET (FP) GT SCH (10:06)
[2023-01-16] MEDS: BACLOFEN 10 MG TABLET (FP) GT SCH ×4 (10:06→23:08)
[2023-01-16] MEDS: DEXAMETHASONE 2 MG TABLET PEG SCH (10:06)
[2023-01-16] MEDS: COLLAGENASE CLOSTRIDIUM HIST. 30 GRAMS TUBE TP SCH (10:07)
[2023-01-17] MEDS: diazePAM 2 MG TABLET GT SCH ×3 (06:00→21:56)
[2023-01-17 08:04] LABS: POTASSIUM 4.1 mmol/L (3.5-5.1)
[2023-01-17 08:05] LABS: CALCIUM 8.3 mg/dL (8.5-10.1)
[2023-01-17 08:06] LABS: ALBUMIN 2.6 g/dl (3.4-5.0); BLOOD UREA NITROGEN 15.8 mg/dL (7-18); MAGNESIUM 1.9 mg/dL (1.8-2.4)
[2023-01-17 08:09] LABS: CREATININE 0.4 mg/dL (0.55-1.3)
[2023-01-17 08:11] LABS: BILIRUBIN,TOTAL 0.3 mg/dL (0.2-1); TOT PROT 6.2 g/dl (6.4-8.2)
[2023-01-17 08:16] LABS: HEMATOCRIT 36.3 % (32.4-45.2); HEMOGLOBIN 12.1 GM/dL (10.7-15.3); MCH 33.9 pg (25.7-33.7); MCHC 33.3 g/dl (32.0-36.0); MEAN CELL VOLUME 101.7 fl (80-96); MEAN PLT VOLUME 10.4 fl (7.5-11.1); PLATELET COUNT 162 10^3/uL (134-434); RBC 3.57 M/mm3 (3.60-5.2); RDW 15.6 % (11.6-15.6); WHITE BLOOD COUNT 8.4 K/mm3 (4.0-10.0)
[2023-01-17] MEDS: HEPARIN NA (PORCINE) 5,000 UNITS/ML 1ML VIAL SQ SCH ×2 (09:32→21:56)
[2023-01-17] MEDS: COLLAGENASE CLOSTRIDIUM HIST. 30 GRAMS TUBE TP SCH (09:32)
[2023-01-17] MEDS: POLYETHYLENE GLYCOL (HEALTHYLAX) 3350 17 GM PACKET GT SCH (09:33)
[2023-01-17] MEDS: Lacosamide 50 MG/5 ML ORAL SOLUTION UNIT CUPS GT SCH ×2 (09:33→21:56)
[2023-01-17] MEDS: amLODIPine BESYLATE 2.5 MG TABLET (FP) GT SCH (09:33)
[2023-01-17] MEDS: BACLOFEN 10 MG TABLET (FP) GT SCH ×4 (09:33→21:56)
[2023-01-17 11:16] LABS: ANISOCYTOSIS 1+; MACROCYTOSIS 1+
[2023-01-18] MEDS: diazePAM 2 MG TABLET GT SCH ×3 (06:11→23:43)
[2023-01-18 08:44] LABS: HEMOGLOBIN 11.8 GM/dL (10.7-15.3); MCH 33.7 pg (25.7-33.7); MCHC 33.7 g/dl (32.0-36.0); MEAN CELL VOLUME 99.9 fl (80-96); MEAN PLT VOLUME 9.2 fl (7.5-11.1); PLATELET COUNT 187 10^3/uL (134-434); RBC 3.51 M/mm3 (3.60-5.2); RDW 15.2 % (11.6-15.6); WHITE BLOOD COUNT 6.5 K/mm3 (4.0-10.0)
[2023-01-18 08:56] LABS: POTASSIUM 4.2 mmol/L (3.5-5.1)
[2023-01-18 08:58] LABS: CALCIUM 8.2 mg/dL (8.5-10.1)
[2023-01-18 08:59] LABS: ALBUMIN 2.6 g/dl (3.4-5.0); BLOOD UREA NITROGEN 14.1 mg/dL (7-18); MAGNESIUM 1.9 mg/dL (1.8-2.4)
[2023-01-18 09:02] LABS: CREATININE 0.3 mg/dL (0.55-1.3)
[2023-01-18 09:03] LABS: BILIRUBIN,TOTAL 0.2 mg/dL (0.2-1)
[2023-01-18 09:04] LABS: TOT PROT 6.2 g/dl (6.4-8.2)
[2023-01-18 09:27] LABS: ANISOCYTOSIS 1+; MACROCYTOSIS 1+
[2023-01-18] MEDS: Lacosamide 50 MG/5 ML ORAL SOLUTION UNIT CUPS GT SCH ×2 (10:03→23:43)
[2023-01-18] MEDS: POLYETHYLENE GLYCOL (HEALTHYLAX) 3350 17 GM PACKET GT SCH (10:04)
[2023-01-18] MEDS: BACLOFEN 10 MG TABLET (FP) GT SCH ×4 (10:04→23:43)
[2023-01-18] MEDS: HEPARIN NA (PORCINE) 5,000 UNITS/ML 1ML VIAL SQ SCH ×2 (10:04→23:43)
[2023-01-18] MEDS: COLLAGENASE CLOSTRIDIUM HIST. 30 GRAMS TUBE TP SCH (10:09)
[2023-01-18] MEDS: amLODIPine BESYLATE 2.5 MG TABLET (FP) GT SCH (10:09)
[2023-01-18] MEDS: SCOPOLAMINE HYDROBROMIDE 1 PATCH PATCH.TD72 TD SCH (17:50)
[2023-01-19] MEDS: diazePAM 2 MG TABLET GT SCH ×3 (06:15→22:51)
[2023-01-19 09:11] LABS: HEMATOCRIT 38.2 % (32.4-45.2); HEMOGLOBIN 12.7 GM/dL (10.7-15.3); MCH 33.6 pg (25.7-33.7); MCHC 33.3 g/dl (32.0-36.0); MEAN CELL VOLUME 101.1 fl (80-96); MEAN PLT VOLUME 9.2 fl (7.5-11.1); PLATELET COUNT 214 10^3/uL (134-434); RBC 3.78 M/mm3 (3.60-5.2); RDW 15.5 % (11.6-15.6); WHITE BLOOD COUNT 6.1 K/mm3 (4.0-10.0)
[2023-01-19 09:28] LABS: POTASSIUM 4.1 mmol/L (3.5-5.1)
[2023-01-19 09:31] LABS: ALBUMIN 2.8 g/dl (3.4-5.0); CALCIUM 8.9 mg/dL (8.5-10.1); MAGNESIUM 1.9 mg/dL (1.8-2.4)
[2023-01-19 09:32] LABS: BLOOD UREA NITROGEN 13.4 mg/dL (7-18)
[2023-01-19 09:34] LABS: CREATININE 0.3 mg/dL (0.55-1.3)
[2023-01-19 09:36] LABS: BILIRUBIN,TOTAL 0.2 mg/dL (0.2-1); TOT PROT 6.7 g/dl (6.4-8.2)
[2023-01-19 10:09] LABS: ANISOCYTOSIS 0; HELMET CELLS 0; HOWELL-JOLLY BODIES 0; MACROCYTOSIS 0; OVALOCYTE 0; ROULEAU 0; SICKELED CELLS 0; TARGET CELLS 0; TEAR DROP CELLS 0; TOXIC GRANULATION 0
[2023-01-19] MEDS: HEPARIN NA (PORCINE) 5,000 UNITS/ML 1ML VIAL SQ SCH ×2 (10:44→22:50)
[2023-01-19] MEDS: Lacosamide 50 MG/5 ML ORAL SOLUTION UNIT CUPS GT SCH ×2 (10:44→22:51)
[2023-01-19] MEDS: POLYETHYLENE GLYCOL (HEALTHYLAX) 3350 17 GM PACKET GT SCH (10:44)
[2023-01-19] MEDS: BACLOFEN 10 MG TABLET (FP) GT SCH ×4 (10:44→22:51)
[2023-01-19] MEDS: COLLAGENASE CLOSTRIDIUM HIST. 30 GRAMS TUBE TP SCH (12:23)
[2023-01-20] MEDS: diazePAM 2 MG TABLET GT SCH ×3 (06:08→22:09)
[2023-01-20 08:56] LABS: BASO % 0.7 % (0-2.0); EOS % 1.4 % (0-4.5); HEMATOCRIT 39.4 % (32.4-45.2); LYMPH % 42.1 % (8-40); MCH 33.5 pg (25.7-33.7); MCHC 33.1 g/dl (32.0-36.0); MEAN CELL VOLUME 101.3 fl (80-96); MEAN PLT VOLUME 9.1 fl (7.5-11.1); MONO % 6.8 % (3.8-10.2); PLATELET COUNT 217 10^3/uL (134-434); RBC 3.89 M/mm3 (3.60-5.2); RDW 15.6 % (11.6-15.6); WHITE BLOOD COUNT 6.9 K/mm3 (4.0-10.0)
[2023-01-20 09:15] LABS: POTASSIUM 4.1 mmol/L (3.5-5.1)
[2023-01-20 09:17] LABS: BLOOD UREA NITROGEN 15.2 mg/dL (7-18); CALCIUM 9.1 mg/dL (8.5-10.1)
[2023-01-20 09:20] LABS: CREATININE 0.4 mg/dL (0.55-1.3)
[2023-01-20 09:22] LABS: BILIRUBIN,TOTAL 0.3 mg/dL (0.2-1); TOT PROT 6.9 g/dl (6.4-8.2)
[2023-01-20] MEDS: HEPARIN NA (PORCINE) 5,000 UNITS/ML 1ML VIAL SQ SCH ×2 (11:18→22:09)
[2023-01-20] MEDS: POLYETHYLENE GLYCOL (HEALTHYLAX) 3350 17 GM PACKET GT SCH (11:18)
[2023-01-20] MEDS: Lacosamide 50 MG/5 ML ORAL SOLUTION UNIT CUPS GT SCH ×2 (11:19→22:08)
[2023-01-20] MEDS: BACLOFEN 10 MG TABLET (FP) GT SCH ×4 (11:19→22:08)
[2023-01-20] MEDS: COLLAGENASE CLOSTRIDIUM HIST. 30 GRAMS TUBE TP SCH (11:21)
[2023-01-21] MEDS: diazePAM 2 MG TABLET GT SCH ×3 (05:48→22:16)
[2023-01-21 08:08] LABS: BASO % 0.6 % (0-2.0); EOS % 1.2 % (0-4.5); HEMOGLOBIN 12.6 GM/dL (10.7-15.3); LYMPH % 32.8 % (8-40); MCHC 34.2 g/dl (32.0-36.0); MEAN CELL VOLUME 99.4 fl (80-96); MEAN PLT VOLUME 8.6 fl (7.5-11.1); MONO % 8.1 % (3.8-10.2); NEUT % 57.3 % (42.8-82.8); PLATELET COUNT 238 10^3/uL (134-434); RBC 3.72 M/mm3 (3.60-5.2); RDW 15.7 % (11.6-15.6); WHITE BLOOD COUNT 7.7 K/mm3 (4.0-10.0)
[2023-01-21] MEDS: ACETAMINOPHEN 650 MG/20.3 ML ORAL SOLUTION (CUPS) GT PRN (08:26)
[2023-01-21 08:27] LABS: POTASSIUM 4.1 mmol/L (3.5-5.1)
[2023-01-21 08:32] LABS: BLOOD UREA NITROGEN 16.8 mg/dL (7-18); CALCIUM 8.6 mg/dL (8.5-10.1)
[2023-01-21 08:36] LABS: CREATININE 0.4 mg/dL (0.55-1.3)
[2023-01-21 08:37] LABS: BILIRUBIN,TOTAL 0.4 mg/dL (0.2-1); TOT PROT 6.7 g/dl (6.4-8.2)
[2023-01-21] MEDS: HEPARIN NA (PORCINE) 5,000 UNITS/ML 1ML VIAL SQ SCH ×2 (09:02→22:16)
[2023-01-21] MEDS: POLYETHYLENE GLYCOL (HEALTHYLAX) 3350 17 GM PACKET GT SCH (09:02)
[2023-01-21] MEDS: Lacosamide 50 MG/5 ML ORAL SOLUTION UNIT CUPS GT SCH ×2 (09:02→22:16)
[2023-01-21] MEDS: BACLOFEN 10 MG TABLET (FP) GT SCH ×4 (09:02→22:15)
[2023-01-21] MEDS: COLLAGENASE CLOSTRIDIUM HIST. 30 GRAMS TUBE TP SCH (13:32)
[2023-01-21] MEDS: SCOPOLAMINE HYDROBROMIDE 1 PATCH PATCH.TD72 TD SCH (17:07)
[2023-01-22] MEDS: diazePAM 2 MG TABLET GT SCH (05:37)
[2023-01-22] MEDS: POLYETHYLENE GLYCOL (HEALTHYLAX) 3350 17 GM PACKET GT SCH (09:00)
[2023-01-22] MEDS: Lacosamide 50 MG/5 ML ORAL SOLUTION UNIT CUPS GT SCH (09:00)
[2023-01-22] MEDS: HEPARIN NA (PORCINE) 5,000 UNITS/ML 1ML VIAL SQ SCH (09:00)
[2023-01-22] MEDS: BACLOFEN 10 MG TABLET (FP) GT SCH (09:01)
[2023-01-22 09:04] VITALS: RESP 18
[2023-01-22] MEDS: COLLAGENASE CLOSTRIDIUM HIST. 30 GRAMS TUBE TP SCH (09:25)
[2023-01-22 12:05] VITALS: BP 132/78; PULSE 85; TEMP 98.8
== END 2023-01-22 14:07 | disposition home or self-care (01) | DRG 177 ==
LOC: JER 08:51 → JERBED 11:52 → J7W 13:20
PROVIDERS: ADMIT Internal Medicine; ATTEND Nurse Practitioner Acute Care
DX: U07.1 COVID-19 (principal); R53.2 Functional quadriplegia; G40.812 Lennox-Gastaut syndrome, not intractable, without status epilepticus; N39.0 Urinary tract infection, site not specified; Z93.1 Gastrostomy status; F79 Unspecified intellectual disabilities; G80.8 Other cerebral palsy; R74.8 Abnormal levels of other serum enzymes; D64.9 Anemia, unspecified; B96.1 Klebsiella pneumoniae [K. pneumoniae] as the cause of diseases classified elsewhere; D69.6 Thrombocytopenia, unspecified; R09.02 Hypoxemia
CPT/HCPCS: 0241U-QW; 36415; 71045-TC-FY; 76705-TC; 80048; 80053; 80076; 81003; 82803; 83605; 83735; 83880; 84100; 84484; 85025; 85610; 85730; 86140; 87040; 87086; 87186; 87635; 93005; 93010; 99285-25; C9399; J0475; J1100; J1644

== ENCOUNTER 2023-08-24 02:26 | Inpatient (IN) | payer OTHER ==
[2023-08-24] MEDS ORDERED: ALBUTEROL SO4 2.5/IPRATROPIUM 0.5 INH SOL 3 ML VIAL.NEB. NEB ONE (03:07)
[2023-08-24] MEDS: ALBUTEROL SO4 2.5/IPRATROPIUM 0.5 INH SOL 3 ML VIAL.NEB. NEB ONE (03:26)
[2023-08-24 04:09] LABS: BASO % 0.2 % (0-2.0); EOS % 0.5 % (0-4.5); HEMOGLOBIN 13.9 GM/dL (10.7-15.3); LYMPH % 13.1 % (8-40); MCH 33.2 pg (25.7-33.7); MEAN CELL VOLUME 97.8 fl (80-96); MEAN PLT VOLUME 10.1 fl (7.5-11.1); MONO % 3.4 % (3.8-10.2); NEUT % 82.8 % (42.8-82.8); PLATELET COUNT 196 10^3/uL (134-434); RBC 4.19 M/mm3 (3.60-5.2); RDW 16.5 % (11.6-15.6); WHITE BLOOD COUNT 11.3 K/mm3 (4.0-10.0)
[2023-08-24 04:16] LABS: VENOUS PCO2 42.5 mmHg (38-52); VENOUS PH 7.404 (7.310-7.410)
[2023-08-24] MEDS ORDERED: DEXAMETHASONE SOD PHOSPHATE 10 MG/1 ML VIAL ONE (04:25)
[2023-08-24 04:32] LABS: INR 1.11 (0.83-1.09); PROTHROMBIN TIME (PATIENT) 12.9 SEC (9.7-13.0)
[2023-08-24 04:34] LABS: ACTIVATED PTT 38.9 SECONDS (25.2-36.5)
[2023-08-24] MEDS: DEXAMETHASONE SOD PHOSPHATE 10 MG/1 ML VIAL IVPUSH ONE (04:35)
[2023-08-24 04:49] LABS: POTASSIUM 4.5 mmol/L (3.5-5.1)
[2023-08-24 04:51] LABS: ALBUMIN 3.2 g/dl (3.4-5.0); CALCIUM 9.4 mg/dL (8.5-10.1)
[2023-08-24 04:52] LABS: BLOOD UREA NITROGEN 11.1 mg/dL (7-18)
[2023-08-24 04:54] LABS: CREATININE 0.4 mg/dL (0.55-1.3)
[2023-08-24 04:56] LABS: BILIRUBIN,TOTAL 0.3 mg/dL (0.2-1); TOT PROT 7.5 g/dl (6.4-8.2)
[2023-08-24] MEDS: REMDESIVIR 200 MG in SODIUM CHLORIDE 250 ML IVPB ONE (05:54)
[2023-08-24] MEDS: DEXTROSE 50%-WATER 25 GM/50 ML DISP.SYRIN IVPUSH ONE (06:28)
[2023-08-24] MEDS ORDERED: AZITHROMYCIN IVPB 500 MG/250 ML BAG IVPB ONE (11:18)
[2023-08-24] MEDS: AZITHROMYCIN IVPB 500 MG in DEXTROSE 5%-WATER - 250 ML IVPB SCH (11:50)
[2023-08-24] MEDS: LACOSAMIDE 10 MG/ML PO SCH (12:00)
[2023-08-24] MEDS ORDERED: LACOSAMIDE 100 MG TABLET PO SCH (12:31)
[2023-08-24] MEDS ORDERED: Lacosamide 50 MG/5 ML ORAL SOLUTION UNIT CUPS PO SCH (12:31)
[2023-08-24] MEDS ORDERED: CEFTRIAXONE 1 GM/50 ML BAG ONE (13:13)
[2023-08-24] MEDS: CEFTRIAXONE 1 GM in DEXTROSE 5%-WATER - 50 ML IVPB SCH (13:23)
[2023-08-24 16:08] VITALS: BMI 15.6
[2023-08-24] MEDS: diazePAM 2 MG TABLET GT SCH (17:07)
[2023-08-24] MEDS: BACLOFEN 10 MG TABLET (FP) GT SCH (17:07)
[2023-08-24] MEDS: Lacosamide 50 MG/5 ML ORAL SOLUTION UNIT CUPS GT SCH (21:41)
[2023-08-25] MEDS: REMDESIVIR 100 MG in SODIUM CHLORIDE 250 ML IVPB SCH (03:16)
[2023-08-25 07:38] LABS: HEMATOCRIT 38.4 % (32.4-45.2); HEMOGLOBIN 13.2 GM/dL (10.7-15.3); MCHC 34.5 g/dl (32.0-36.0); MEAN CELL VOLUME 98.8 fl (80-96); MEAN PLT VOLUME 9.8 fl (7.5-11.1); PLATELET COUNT 146 10^3/uL (134-434); RBC 3.89 M/mm3 (3.60-5.2); RDW 16.9 % (11.6-15.6); WHITE BLOOD COUNT 8.1 K/mm3 (4.0-10.0)
[2023-08-25 07:46] LABS: ALBUMIN 2.8 g/dl (3.4-5.0); CALCIUM 8.5 mg/dL (8.5-10.1); MAGNESIUM 2.2 mg/dL (1.8-2.4)
[2023-08-25 07:47] LABS: BLOOD UREA NITROGEN 13.5 mg/dL (7-18)
[2023-08-25 07:49] LABS: CREATININE 0.3 mg/dL (0.55-1.3); PHOSPHOROUS 3.4 mg/dL (2.5-4.9)
[2023-08-25 07:51] LABS: BILIRUBIN,TOTAL 0.2 mg/dL (0.2-1); TOT PROT 6.9 g/dl (6.4-8.2)
[2023-08-25] MEDS: AZITHROMYCIN IVPB 500 MG/250 ML BAG IVPB SCH (09:00)
[2023-08-25] MEDS: ENOXAPARIN NA (PORCINE) 40 MG/0.4 ML DISP.SYRIN SQ SCH (09:59)
[2023-08-25] MEDS ORDERED: CEFTRIAXONE 1 GM in DEXTROSE 5%-WATER - 50 ML IVPB SCH (10:00)
[2023-08-25] MEDS: DEXAMETHASONE SOD PHOSPHATE 10 MG/1 ML VIAL IVPUSH SCH (10:01)
[2023-08-25] MEDS: Lacosamide 50 MG/5 ML ORAL SOLUTION UNIT CUPS GT SCH (10:04)
[2023-08-25] MEDS: MINERAL OIL/PET HY-PHL TOPICAL OINTMENT 454 GM JAR TP SCH (12:37)
[2023-08-25] MEDS: TIZANIDINE HCL GT SCH (21:34)
[2023-08-25] MEDS: RUFINAMIDE 40 MG/ML GT SCH (21:37)
[2023-08-26] MEDS: AMINO ACIDS/PROTEIN HYDROLYS 30 ML LIQUID.PKT PO SCH (08:53)
[2023-08-26 08:59] LABS: HEMATOCRIT 34.8 % (32.4-45.2); HEMOGLOBIN 11.7 GM/dL (10.7-15.3); INR 1.18 (0.83-1.09); MCH 33.4 pg (25.7-33.7); MCHC 33.6 g/dl (32.0-36.0); MEAN CELL VOLUME 99.3 fl (80-96); MEAN PLT VOLUME 9.4 fl (7.5-11.1); PLATELET COUNT 180 10^3/uL (134-434); PROTHROMBIN TIME (PATIENT) 13.7 SEC (9.7-13.0); WHITE BLOOD COUNT 5.5 K/mm3 (4.0-10.0)
[2023-08-26 09:11] LABS: POTASSIUM 3.8 mmol/L (3.5-5.1)
[2023-08-26 09:20] LABS: ALBUMIN 2.7 g/dl (3.4-5.0); BILIRUBIN,TOTAL 0.2 mg/dL (0.2-1); BLOOD UREA NITROGEN 14.5 mg/dL (7-18); CALCIUM 8.9 mg/dL (8.5-10.1); MAGNESIUM 2.2 mg/dL (1.8-2.4)
[2023-08-26 09:21] LABS: TOT PROT 6.7 g/dl (6.4-8.2)
[2023-08-26 09:23] LABS: CREATININE 0.3 mg/dL (0.55-1.3)
[2023-08-27 08:06] LABS: HEMOGLOBIN 12.7 GM/dL (10.7-15.3); MCH 33.7 pg (25.7-33.7); MCHC 34.4 g/dl (32.0-36.0); MEAN CELL VOLUME 97.9 fl (80-96); MEAN PLT VOLUME 9.6 fl (7.5-11.1); PLATELET COUNT 173 10^3/uL (134-434); RBC 3.78 M/mm3 (3.60-5.2); RDW 16.7 % (11.6-15.6)
[2023-08-27 08:21] LABS: BLOOD UREA NITROGEN 17.9 mg/dL (7-18); CALCIUM 8.6 mg/dL (8.5-10.1); MAGNESIUM 2.3 mg/dL (1.8-2.4)
[2023-08-27 08:22] LABS: ALBUMIN 2.8 g/dl (3.4-5.0)
[2023-08-27 08:25] LABS: CREATININE 0.3 mg/dL (0.55-1.3)
[2023-08-27 08:26] LABS: BILIRUBIN,TOTAL 0.2 mg/dL (0.2-1); TOT PROT 6.8 g/dl (6.4-8.2)
[2023-08-27] MEDS: REMDESIVIR 100 MG in SODIUM CHLORIDE 250 ML IVPB SCH (11:04)
[2023-08-28] MEDS: ACETAMINOPHEN 1000 MG/100 ML BAG IVPB PRN (08:40)
[2023-08-28 09:19] LABS: HEMATOCRIT 39.1 % (32.4-45.2); HEMOGLOBIN 13.3 GM/dL (10.7-15.3); MCH 33.6 pg (25.7-33.7); MCHC 34.1 g/dl (32.0-36.0); MEAN CELL VOLUME 98.7 fl (80-96); MEAN PLT VOLUME 9.4 fl (7.5-11.1); RBC 3.96 M/mm3 (3.60-5.2); RDW 16.6 % (11.6-15.6)
[2023-08-28 09:22] LABS: PLATELET COUNT 154 10^3/uL (134-434)
[2023-08-28 09:45] LABS: POTASSIUM 4.1 mmol/L (3.5-5.1)
[2023-08-28 09:50] LABS: CALCIUM 9.3 mg/dL (8.5-10.1); MAGNESIUM 2.3 mg/dL (1.8-2.4)
[2023-08-28 09:51] LABS: ALBUMIN 3.3 g/dl (3.4-5.0)
[2023-08-28 09:54] LABS: CREATININE 0.5 mg/dL (0.55-1.3)
[2023-08-28 09:55] LABS: BILIRUBIN,TOTAL 0.3 mg/dL (0.2-1); TOT PROT 7.5 g/dl (6.4-8.2)
[2023-08-29 08:20] LABS: HEMATOCRIT 33.9 % (32.4-45.2); HEMOGLOBIN 11.5 GM/dL (10.7-15.3); MCH 33.7 pg (25.7-33.7); MCHC 33.9 g/dl (32.0-36.0); MEAN CELL VOLUME 99.2 fl (80-96); MEAN PLT VOLUME 9.4 fl (7.5-11.1); PLATELET COUNT 179 10^3/uL (134-434); RBC 3.42 M/mm3 (3.60-5.2); RDW 16.5 % (11.6-15.6); WHITE BLOOD COUNT 5.6 K/mm3 (4.0-10.0)
[2023-08-29 08:38] LABS: POTASSIUM 3.7 mmol/L (3.5-5.1)
[2023-08-29 08:42] LABS: CALCIUM 8.7 mg/dL (8.5-10.1)
[2023-08-29 08:43] LABS: ALBUMIN 2.9 g/dl (3.4-5.0); MAGNESIUM 2.4 mg/dL (1.8-2.4)
[2023-08-29 08:46] LABS: CREATININE 0.4 mg/dL (0.55-1.3)
[2023-08-29 08:47] LABS: BILIRUBIN,TOTAL 0.2 mg/dL (0.2-1)
[2023-08-29 08:48] LABS: TOT PROT 6.4 g/dl (6.4-8.2)
[2023-08-31 11:57] VITALS: BP 115/68; PULSE 76; RESP 20; TEMP 97.5
== END 2023-08-31 14:28 | disposition home or self-care (01) | DRG 177 ==
LOC: JER 02:26 → JERBED 04:15 → J7W 14:17
PROVIDERS: ADMIT Internal Medicine; ATTEND Nurse Practitioner Family
PROC: XW033E5 Introduction of Remdesivir Anti-infective into Peripheral Vein, Percutaneous Approach, New Technology Group 5 (ICD-10-PCS; principal; 2023-08-24)
DX: U07.1 COVID-19 (principal); J12.82 Pneumonia due to coronavirus disease 2019; G40.812 Lennox-Gastaut syndrome, not intractable, without status epilepticus; J98.11 Atelectasis; R64 Cachexia; Z68.1 Body mass index [BMI] 19.9 or less, adult; G80.9 Cerebral palsy, unspecified; G40.909 Epilepsy, unspecified, not intractable, without status epilepticus; Z93.1 Gastrostomy status; R09.02 Hypoxemia; F79 Unspecified intellectual disabilities
CPT/HCPCS: 0241U-QW; 36415; 71045-TC-FY; 71250-TC; 80053; 82803; 82962; 83735; 84100; 85025; 85027; 85610; 85730; 86140; 87635; 93005; 93010; 99285-25; J0131; J0248; J0475; J1100

== ENCOUNTER 2023-10-03 19:12 | Inpatient (IN) | payer OTHER ==
[2023-10-03] MEDS: PIPERACILLIN/TAZOB 4.5 GM 4.5 GM in DEXTROSE 5%-WATER 100 ML IVPB ONE (20:00)
[2023-10-03 20:31] LABS: HEMATOCRIT 35.2 % (32.4-45.2); HEMOGLOBIN 12.1 GM/dL (10.7-15.3); MCH 34.7 pg (25.7-33.7); MCHC 34.4 g/dl (32.0-36.0); MEAN CELL VOLUME 100.7 fl (80-96); MEAN PLT VOLUME 9.9 fl (7.5-11.1); PLATELET COUNT 96 10^3/uL (134-434); RBC 3.49 M/mm3 (3.60-5.2); RDW 16.8 % (11.6-15.6); WHITE BLOOD COUNT 4.7 K/mm3 (4.0-10.0)
[2023-10-03 20:39] LABS: INR 1.12 (0.83-1.09); PROTHROMBIN TIME (PATIENT) 12.6 SEC (9.7-13.0)
[2023-10-03 20:45] LABS: EPI CELLS >36 /uL (0-25.1); HYALINE CASTS 30 /uL (0-3.1); URINE APPEARANCE CLOUDY; URINE BACTERIA 31 /uL (0-1359); URINE BILIRUBIN NEGATIVE (NEGATIVE); URINE COLOR DK YELLOW; URINE GLUCOSE (UA) NEGATIVE (NEGATIVE); URINE KETONE NEGATIVE (NEGATIVE); URINE LEUK ESTERASE TRACE (NEGATIVE); URINE NITRITE NEGATIVE (NEGATIVE); URINE PROTEIN 1+ (NEGATIVE); URINE RBC 5 /uL (0-23.9); URINE WBC 24 /uL (0-25.8); VENOUS BASE EXCESS 1.1 mmol/L (-2-2); VENOUS PH 7.37 (7.310-7.410)
[2023-10-03] MEDS ORDERED: PIPERACILLIN/TAZOB 4.5 GM 4.5 GM/100 ML BAG IVPB ONE (20:47)
[2023-10-03] MEDS ORDERED: VANCOMYCIN 1 GRAM (PRE-DOCKED) 1,000 MG/250 ML BAG IVPB ONE (20:47)
[2023-10-03 21:07] LABS: ANISOCYTOSIS 1+; MACROCYTOSIS 1+
[2023-10-03 21:08] LABS: PLATELET ESTIMATE DECREASED
[2023-10-03] MEDS: SODIUM CHLORIDE 0.9% 500 ML INFUS.BAG IV ONE (21:16)
[2023-10-03 21:49] LABS: POTASSIUM 3.6 mmol/L (3.5-5.1)
[2023-10-03 21:51] LABS: ALBUMIN 2.8 g/dl (3.4-5.0); BLOOD UREA NITROGEN 12.9 mg/dL (7-18); CALCIUM 9.4 mg/dL (8.5-10.1)
[2023-10-03] MEDS ORDERED: ACETAMINOPHEN INJECTION 100 ML IVPB ONE (21:51)
[2023-10-03 21:54] LABS: CREATININE 0.7 mg/dL (0.55-1.3)
[2023-10-03 21:56] LABS: BILIRUBIN,TOTAL 0.4 mg/dL (0.2-1); TOT PROT 6.6 g/dl (6.4-8.2)
[2023-10-03] MEDS: VANCOMYCIN 1,000 MG in DEXTROSE 5%-WATER - 250 ML IVPB ONE (22:08)
[2023-10-03] MEDS: ACETAMINOPHEN 1000 MG/100 ML BAG IVPB ONE (22:08)
[2023-10-04] MEDS ORDERED: IBUPROFEN 800 MG/8 ML IJ IVPB PRN (00:23)
[2023-10-04] MEDS: SODIUM CHLORIDE 1,000 ML IV SCH (00:55)
[2023-10-04] MEDS ORDERED: ACETAMINOPHEN 1000 MG/100 ML BAG IVPB PRN (00:58)
[2023-10-04] MEDS: VANCOMYCIN/WATER FOR INJ (PEG) 1,000 MG/200 ML BAG IVPB SCH (08:19)
[2023-10-04] MEDS: VANCOMYCIN 1,000 MG in DEXTROSE 5%-WATER - 250 ML IVPB SCH (08:19)
[2023-10-04 08:50] LABS: HEMATOCRIT 37.1 % (32.4-45.2); HEMOGLOBIN 12.4 GM/dL (10.7-15.3); MCH 33.7 pg (25.7-33.7); MCHC 33.5 g/dl (32.0-36.0); MEAN CELL VOLUME 100.8 fl (80-96); MEAN PLT VOLUME 9.8 fl (7.5-11.1); PLATELET COUNT 88 10^3/uL (134-434); RBC 3.68 M/mm3 (3.60-5.2); RDW 16.3 % (11.6-15.6); WHITE BLOOD COUNT 4.6 K/mm3 (4.0-10.0)
[2023-10-04 09:10] LABS: POTASSIUM 3.4 mmol/L (3.5-5.1)
[2023-10-04 09:15] LABS: CALCIUM 9.3 mg/dL (8.5-10.1)
[2023-10-04 09:16] LABS: ALBUMIN 2.9 g/dl (3.4-5.0); BLOOD UREA NITROGEN 10.6 mg/dL (7-18)
[2023-10-04 09:19] LABS: CREATININE 0.4 mg/dL (0.55-1.3); PHOSPHOROUS 3.4 mg/dL (2.5-4.9)
[2023-10-04 09:20] LABS: BILIRUBIN,TOTAL 0.6 mg/dL (0.2-1); TOT PROT 6.7 g/dl (6.4-8.2)
[2023-10-04] MEDS: PIPERACILLIN/TAZOB 3.375 GM 3.375 GM in DEXTROSE 5%-WATER - 50 ML IVPB SCH (09:39)
[2023-10-04] MEDS: ENOXAPARIN NA (PORCINE) 40 MG/0.4 ML DISP.SYRIN SQ SCH (09:39)
[2023-10-04] MEDS ORDERED: PIPERACILLIN/TAZOB 3.375 GM 3.375 GM in DEXTROSE 5%-WATER - 50 ML IVPB SCH (10:00)
[2023-10-04] MEDS ORDERED: diazePAM RECTAL GEL 10 MG KIT (PRE-CALIBRATED) RC PRN (14:05)
[2023-10-04 14:43] VITALS: BMI 26.7
[2023-10-04] MEDS: ALBUTEROL SO4 2.5/IPRATROPIUM 0.5 INH SOL 3 ML VIAL.NEB. NEB SCH (16:31)
[2023-10-04] MEDS: BACLOFEN 10 MG TABLET (FP) GT SCH (17:03)
[2023-10-04] MEDS: D5-1/2NS+10 MEQ KCL - 10 MEQ/1,000 ML INFUS.BAG IV SCH (17:03)
[2023-10-04] MEDS: diazePAM 2 MG TABLET GT SCH (22:49)
[2023-10-04] MEDS: Lacosamide 50 MG/5 ML ORAL SOLUTION UNIT CUPS GT SCH (22:49)
[2023-10-05 08:57] LABS: BASO % 0.3 % (0-2.0); EOS % 1.3 % (0-4.5); HEMATOCRIT 35.9 % (32.4-45.2); HEMOGLOBIN 12.3 GM/dL (10.7-15.3); LYMPH % 18.5 % (8-40); MCH 34.4 pg (25.7-33.7); MCHC 34.4 g/dl (32.0-36.0); MEAN CELL VOLUME 100.1 fl (80-96); MEAN PLT VOLUME 9.1 fl (7.5-11.1); MONO % 6.7 % (3.8-10.2); NEUT % 73.2 % (42.8-82.8); PLATELET COUNT 96 10^3/uL (134-434); RBC 3.58 M/mm3 (3.60-5.2); RDW 16.3 % (11.6-15.6)
[2023-10-05 09:15] LABS: POTASSIUM 3.6 mmol/L (3.5-5.1)
[2023-10-05 09:20] LABS: CALCIUM 8.9 mg/dL (8.5-10.1)
[2023-10-05 09:21] LABS: ALBUMIN 2.6 g/dl (3.4-5.0); BLOOD UREA NITROGEN 12.6 mg/dL (7-18)
[2023-10-05 09:23] LABS: CREATININE 0.3 mg/dL (0.55-1.3)
[2023-10-05 09:26] LABS: BILIRUBIN,TOTAL 0.6 mg/dL (0.2-1); TOT PROT 6.3 g/dl (6.4-8.2)
[2023-10-06 08:40] LABS: BASO % 0.4 % (0-2.0); EOS % 2.5 % (0-4.5); HEMATOCRIT 31.8 % (32.4-45.2); HEMOGLOBIN 11.2 GM/dL (10.7-15.3); LYMPH % 37.8 % (8-40); MCH 34.8 pg (25.7-33.7); MCHC 35.2 g/dl (32.0-36.0); MEAN CELL VOLUME 98.9 fl (80-96); MEAN PLT VOLUME 9.1 fl (7.5-11.1); MONO % 7.5 % (3.8-10.2); NEUT % 51.8 % (42.8-82.8); PLATELET COUNT 115 10^3/uL (134-434); RBC 3.22 M/mm3 (3.60-5.2); RDW 16.1 % (11.6-15.6); WHITE BLOOD COUNT 3.2 K/mm3 (4.0-10.0)
[2023-10-06 08:53] LABS: POTASSIUM 3.2 mmol/L (3.5-5.1)
[2023-10-06 09:00] LABS: CALCIUM 8.6 mg/dL (8.5-10.1)
[2023-10-06 09:01] LABS: ALBUMIN 2.6 g/dl (3.4-5.0); MAGNESIUM 2.3 mg/dL (1.8-2.4)
[2023-10-06 09:04] LABS: CREATININE 0.3 mg/dL (0.55-1.3)
[2023-10-06 09:05] LABS: BILIRUBIN,TOTAL 0.4 mg/dL (0.2-1); TOT PROT 6.2 g/dl (6.4-8.2)
[2023-10-07 07:56] LABS: BASO % 0.8 % (0-2.0); EOS % 3.1 % (0-4.5); HEMATOCRIT 32.1 % (32.4-45.2); HEMOGLOBIN 11.1 GM/dL (10.7-15.3); MCH 34.4 pg (25.7-33.7); MCHC 34.5 g/dl (32.0-36.0); MEAN CELL VOLUME 99.9 fl (80-96); MEAN PLT VOLUME 9.1 fl (7.5-11.1); MONO % 9.7 % (3.8-10.2); NEUT % 56.4 % (42.8-82.8); PLATELET COUNT 119 10^3/uL (134-434); RBC 3.22 M/mm3 (3.60-5.2); RDW 15.7 % (11.6-15.6); WHITE BLOOD COUNT 4.2 K/mm3 (4.0-10.0)
[2023-10-07 08:10] LABS: POTASSIUM 3.6 mmol/L (3.5-5.1)
[2023-10-07 08:16] LABS: CALCIUM 8.6 mg/dL (8.5-10.1)
[2023-10-07 08:17] LABS: ALBUMIN 2.6 g/dl (3.4-5.0); BLOOD UREA NITROGEN 5.7 mg/dL (7-18); MAGNESIUM 2.2 mg/dL (1.8-2.4)
[2023-10-07 08:20] LABS: BILIRUBIN,TOTAL 0.4 mg/dL (0.2-1); CREATININE 0.3 mg/dL (0.55-1.3); TOT PROT 6.3 g/dl (6.4-8.2)
[2023-10-07] MEDS ORDERED: LORazepam 2 MG/ML SDV VIAL IVPUSH PRN (10:27)
[2023-10-07] MEDS: CYCLOBENZAPRINE HCL 5 MG TABLET PO SCH (11:07)
[2023-10-07] MEDS: LACTOBACILLUS ACIDOPHILUS 1 TABLET GT SCH (11:07)
[2023-10-07] MEDS: PANTOPRAZOLE SODIUM 40 MG VIAL IVPUSH SCH (11:07)
[2023-10-07] MEDS: amLODIPine BESYLATE 2.5 MG TABLET (FP) PO ONE (11:41)
[2023-10-07] MEDS: PATIENT'S OWN MEDICATION (NON-FORMULARY) (Tizanidine Hcl 4 MG Tablet) GT SCH (11:43)
[2023-10-07] MEDS: RUFINAMIDE GT SCH (22:52)
[2023-10-07] MEDS: MULTIVIT-MINERALS ORAL LIQUID GT SCH (22:52)
[2023-10-07] MEDS: OLOPATADINE HCL OU SCH (22:53)
[2023-10-08 09:07] LABS: POTASSIUM 3.7 mmol/L (3.5-5.1)
[2023-10-08 09:11] LABS: ALBUMIN 2.4 g/dl (3.4-5.0); CALCIUM 8.6 mg/dL (8.5-10.1)
[2023-10-08 09:15] LABS: CREATININE 0.3 mg/dL (0.55-1.3)
[2023-10-08 09:16] LABS: BILIRUBIN,TOTAL 0.3 mg/dL (0.2-1)
[2023-10-08 10:06] LABS: HEMATOCRIT 33.2 % (32.4-45.2); HEMOGLOBIN 11.4 GM/dL (10.7-15.3); MCH 34.1 pg (25.7-33.7); MCHC 34.2 g/dl (32.0-36.0); MEAN CELL VOLUME 99.6 fl (80-96); PLATELET COUNT 126 10^3/uL (134-434); RBC 3.33 M/mm3 (3.60-5.2); RDW 16.1 % (11.6-15.6); WHITE BLOOD COUNT 3.2 K/mm3 (4.0-10.0)
[2023-10-08 10:31] LABS: ANISOCYTOSIS 0; MACROCYTOSIS 0
[2023-10-09 08:40] LABS: HEMATOCRIT 33.5 % (32.4-45.2); HEMOGLOBIN 11.7 GM/dL (10.7-15.3); MCH 34.7 pg (25.7-33.7); MCHC 34.8 g/dl (32.0-36.0); MEAN CELL VOLUME 99.7 fl (80-96); MEAN PLT VOLUME 8.4 fl (7.5-11.1); PLATELET COUNT 162 10^3/uL (134-434); RBC 3.36 M/mm3 (3.60-5.2); RDW 15.9 % (11.6-15.6); WHITE BLOOD COUNT 3.7 K/mm3 (4.0-10.0)
[2023-10-09 08:56] LABS: BLOOD UREA NITROGEN 4.9 mg/dL (7-18)
[2023-10-09 08:58] LABS: ALBUMIN 2.6 g/dl (3.4-5.0); CALCIUM 8.4 mg/dL (8.5-10.1)
[2023-10-09 09:02] LABS: BILIRUBIN,TOTAL 0.5 mg/dL (0.2-1); CREATININE 0.2 mg/dL (0.55-1.3)
[2023-10-09 09:03] LABS: TOT PROT 6.3 g/dl (6.4-8.2)
[2023-10-09 09:40] LABS: ANISOCYTOSIS 1+; MACROCYTOSIS 0
[2023-10-09] MEDS ORDERED: AMOX TR/POT CLAV 875MG/125MG TABLETS (FP) PO SCH (17:30)
[2023-10-09] MEDS: AMOXICILLIN ORAL SUSPENSION - 250 MG/5 ML GT SCH (22:31)
[2023-10-11] MEDS: metroNIDAZOLE 250 MG TABLET PEG SCH (18:09)
[2023-10-12] MEDS: FAMOTIDINE 20 MG/2.5 ML ORAL LIQUID PEG SCH (14:23)
[2023-10-13] MEDS: ACETAMINOPHEN 650 MG/20.3 ML ORAL SOLUTION (CUPS) PO ONE (04:38)
[2023-10-13] MEDS: ACETAMINOPHEN 650 MG/20.3 ML ORAL SOLUTION (CUPS) GT ONE (05:04)
[2023-10-13] MEDS: diazePAM 2 MG TABLET GT SCH (06:39)
[2023-10-13] MEDS: Lacosamide 50 MG/5 ML ORAL SOLUTION UNIT CUPS GT SCH (06:39)
[2023-10-13] MEDS: POLYETHYLENE GLYCOL (HEALTHYLAX) 3350 17 GM PACKET GT ONE (10:21)
[2023-10-13] MEDS: CYCLOBENZAPRINE HCL 5 MG TABLET GT SCH (22:49)
[2023-10-14 11:45] VITALS: BP 105/77; PULSE 88; RESP 20; TEMP 97.6
== END 2023-10-14 13:18 | disposition home or self-care (01) | DRG 871 ==
LOC: JER 19:12 → JERBED 21:48 → J8W 10-04 01:40
PROVIDERS: ADMIT Internal Medicine; ATTEND Nurse Practitioner Acute Care
DX: A41.89 Other specified sepsis (principal); J69.0 Pneumonitis due to inhalation of food and vomit; J96.01 Acute respiratory failure with hypoxia; R53.2 Functional quadriplegia; G40.812 Lennox-Gastaut syndrome, not intractable, without status epilepticus; I31.39 Other pericardial effusion (noninflammatory); J98.11 Atelectasis; R50.9 Fever, unspecified; K76.0 Fatty (change of) liver, not elsewhere classified; D69.6 Thrombocytopenia, unspecified; I10 Essential (primary) hypertension; R00.0 Tachycardia, unspecified; F79 Unspecified intellectual disabilities; G80.9 Cerebral palsy, unspecified; K80.20 Calculus of gallbladder without cholecystitis without obstruction; Z99.81 Dependence on supplemental oxygen
CPT/HCPCS: 0241U-QW; 36415; 71045-TC-FY; 71250-TC; 80053; 81003; 82550; 82803; 83605; 83735; 84100; 84484; 85025; 85027; 85610; 85730; 87040; 87086; 87635; 93005; 93010; 93306-TC; 94640; 99285-25; J0131; J0475

== ENCOUNTER 2023-12-01 12:49 | Emergency (ER) | payer OTHER ==
[2023-12-01 13:02] VITALS: TEMP 98.8; BMI 23.3
[2023-12-01] MEDS ORDERED: ACETAMINOPHEN INJECTION 100 ML IVPB ONE (14:17)
[2023-12-01] MEDS: ACETAMINOPHEN 1000 MG/100 ML BAG IVPB ONE (14:37)
[2023-12-01 17:27] VITALS: BP 148/71; PULSE 71; RESP 18
== END 2023-12-01 18:00 ==
LOC: JER 12:49
PROC: 0HQ1XZZ Repair Face Skin, External Approach (ICD-10-PCS; principal; 2023-12-01)
PROC: 3E033NZ Introduction of Analgesics, Hypnotics, Sedatives into Peripheral Vein, Percutaneous Approach (ICD-10-PCS; 2023-12-01)
DX: S01.81XA Laceration without foreign body of other part of head, initial encounter (principal); G80.9 Cerebral palsy, unspecified; W22.8XXA Striking against or struck by other objects, initial encounter; Y92.122 Bedroom in nursing home as the place of occurrence of the external cause
CPT/HCPCS: 12011; 70450-TC; 96374; 99284-25; J0131

== ENCOUNTER 2024-01-16 12:12 | Inpatient (IN) | payer OTHER ==
[2024-01-16 13:15] LABS: BASO % 0.4 % (0-2.0); EOS % 0.9 % (0-4.5); HEMATOCRIT 40.3 % (32.4-45.2); LYMPH % 23.8 % (8-40); MCH 34.6 pg (25.7-33.7); MCHC 34.8 g/dl (32.0-36.0); MEAN CELL VOLUME 99.3 fl (80-96); MEAN PLT VOLUME 9.8 fl (7.5-11.1); MONO % 6.4 % (3.8-10.2); NEUT % 68.5 % (42.8-82.8); PLATELET COUNT 175 10^3/uL (134-434); RBC 4.06 M/mm3 (3.60-5.2); RDW 14.1 % (11.6-15.6); WHITE BLOOD COUNT 5.7 K/mm3 (4.0-10.0)
[2024-01-16 13:21] LABS: VENOUS BASE EXCESS 1.3 mmol/L (-2-2); VENOUS O2 SATURATION 83.5 % (70-80); VENOUS PCO2 51.8 mmHg (38-52); VENOUS PH 7.349 (7.310-7.410)
[2024-01-16 13:34] LABS: POTASSIUM 4.3 mmol/L (3.5-5.1)
[2024-01-16 13:35] LABS: ALBUMIN 3.6 g/dl (3.4-5.0); BLOOD UREA NITROGEN 11.7 mg/dL (7-18); CALCIUM 9.8 mg/dL (8.5-10.1)
[2024-01-16 13:39] LABS: CREATININE 0.6 mg/dL (0.55-1.3)
[2024-01-16 13:40] LABS: BILIRUBIN,TOTAL 0.4 mg/dL (0.2-1); TOT PROT 7.6 g/dl (6.4-8.2)
[2024-01-16] MEDS ORDERED: VANCOMYCIN 750 MG in DEXTROSE 5%-WATER - 250 ML IVPB ONE (14:13)
[2024-01-16] MEDS ORDERED: diazePAM RECTAL GEL 10 MG KIT (PRE-CALIBRATED) RC PRN (14:23)
[2024-01-16 14:48] LABS: INR 1.03 (0.83-1.09); PROTHROMBIN TIME (PATIENT) 11.8 SEC (9.7-13.0)
[2024-01-16 14:50] LABS: ACTIVATED PTT 39.5 SECONDS (25.2-36.5)
[2024-01-16 14:55] LABS: POTASSIUM 4.1 mmol/L (3.5-5.1)
[2024-01-16 14:56] LABS: CALCIUM 9.7 mg/dL (8.5-10.1)
[2024-01-16 14:57] LABS: ALBUMIN 3.6 g/dl (3.4-5.0); BLOOD UREA NITROGEN 10.9 mg/dL (7-18)
[2024-01-16 15:00] LABS: CREATININE 0.6 mg/dL (0.55-1.3)
[2024-01-16 15:02] LABS: BILIRUBIN,TOTAL 0.2 mg/dL (0.2-1); TOT PROT 7.2 g/dl (6.4-8.2)
[2024-01-16] MEDS ORDERED: PIPERACILLIN/TAZOB 4.5 GM 4.5 GM/100 ML BAG IVPB ONE (15:13)
[2024-01-16] MEDS: PIPERACILLIN/TAZOB 4.5 GM 4.5 GM in DEXTROSE 5%-WATER 100 ML IVPB ONE (15:46)
[2024-01-16 15:50] LABS: EPI CELLS >36 /uL (0-25.1); HYALINE CASTS 3 /uL (0-3.1); PH,URINE 8.5 (5.0-8.0); URINE APPEARANCE TURBID; URINE BACTERIA 2336 /uL (0-1359); URINE BILIRUBIN NEGATIVE (NEGATIVE); URINE COLOR YELLOW; URINE GLUCOSE (UA) NEGATIVE (NEGATIVE); URINE KETONE NEGATIVE (NEGATIVE); URINE LEUK ESTERASE 1+ (NEGATIVE); URINE NITRITE NEGATIVE (NEGATIVE); URINE PROTEIN NEGATIVE (NEGATIVE); URINE RBC 8 /uL (0-23.9); URINE UROBILINOGEN 0.2 mg/dL (0.2-1.0); URINE WBC 87 /uL (0-25.8)
[2024-01-16] MEDS: LACTATED RINGERS SOLUTION 1,000 ML/1,000 ML INFUS.BAG IV SCH (16:06)
[2024-01-16] MEDS: VANCOMYCIN/WATER FOR INJ (PEG) 750 MG/150 ML BAG IVPB ONE (17:06)
[2024-01-16 17:29] VITALS: BMI 22.4
[2024-01-16] MEDS: BACLOFEN 10 MG TABLET (FP) GT SCH (17:47)
[2024-01-16] MEDS: PIPERACILLIN/TAZOB 4.5 GM 4.5 GM in DEXTROSE 5%-WATER 100 ML IVPB SCH (17:48)
[2024-01-16 20:29] VITALS: RESP 18
[2024-01-16] MEDS ORDERED: PATIENT'S OWN MEDICATION (NON-FORMULARY) (Rufinamide 400 MG Tablet) GT SCH (22:00)
[2024-01-16] MEDS ORDERED: PATIENT'S OWN MEDICATION (NON-FORMULARY) (Olopatadine Hcl [Pataday] 2.5 ML Drops) OU SCH (22:00)
[2024-01-16] MEDS ORDERED: PATIENT'S OWN MEDICATION (NON-FORMULARY) (Tizanidine Hcl 4 MG Tablet) GT SCH (22:00)
[2024-01-16] MEDS: Lacosamide 50 MG/5 ML ORAL SOLUTION UNIT CUPS GT SCH (23:50)
[2024-01-16] MEDS: HEPARIN NA (PORCINE) 5,000 UNITS/ML 1ML VIAL SQ SCH (23:50)
[2024-01-16] MEDS: diazePAM 2 MG TABLET GT SCH (23:50)
[2024-01-17] MEDS: PANTOPRAZOLE SODIUM 40 MG VIAL IVPUSH SCH (09:37)
[2024-01-17] MEDS: POLYETHYLENE GLYCOL (HEALTHYLAX) 3350 17 GM PACKET GT SCH (09:42)
[2024-01-17 10:36] LABS: BASO % 0.5 % (0-2.0); EOS % 0.9 % (0-4.5); HEMATOCRIT 38.1 % (32.4-45.2); HEMOGLOBIN 13.1 GM/dL (10.7-15.3); LYMPH % 28.7 % (8-40); MCHC 34.5 g/dl (32.0-36.0); MEAN CELL VOLUME 98.5 fl (80-96); MEAN PLT VOLUME 9.6 fl (7.5-11.1); MONO % 4.4 % (3.8-10.2); NEUT % 65.5 % (42.8-82.8); PLATELET COUNT 147 10^3/uL (134-434); RBC 3.87 M/mm3 (3.60-5.2); WHITE BLOOD COUNT 4.8 K/mm3 (4.0-10.0)
[2024-01-17 10:50] LABS: POTASSIUM 3.8 mmol/L (3.5-5.1)
[2024-01-17 10:59] LABS: BLOOD UREA NITROGEN 11.8 mg/dL (7-18); CALCIUM 8.8 mg/dL (8.5-10.1)
[2024-01-17 11:03] LABS: CREATININE 0.5 mg/dL (0.55-1.3)
[2024-01-17 11:44] LABS: HIV INTERPRETATION NEGATIVE (NEGATIVE)
[2024-01-17] MEDS ORDERED: ALBUTEROL SO4 2.5/IPRATROPIUM 0.5 INH SOL 3 ML VIAL.NEB. NEB PRN (12:07)
[2024-01-17] MEDS: PIPERACILLIN/TAZOB 3.375 GM 3.375 GM in DEXTROSE 5%-WATER - 50 ML IVPB SCH (17:30)
[2024-01-17] MEDS ORDERED: PATIENT'S OWN MEDICATION (NON-FORMULARY) (Diazepam [Valtoco] 10 MG/0.1 ML Spray) NS PRN (17:36)
[2024-01-17] MEDS ORDERED: PIPERACILLIN/TAZOB 4.5 GM 4.5 GM in DEXTROSE 5%-WATER 100 ML IVPB SCH (18:00)
[2024-01-18 07:44] LABS: HEMOGLOBIN 13.1 GM/dL (10.7-15.3); MCH 34.5 pg (25.7-33.7); MCHC 35.4 g/dl (32.0-36.0); MEAN CELL VOLUME 97.5 fl (80-96); MEAN PLT VOLUME 9.9 fl (7.5-11.1); PLATELET COUNT 159 10^3/uL (134-434); RDW 13.9 % (11.6-15.6); WHITE BLOOD COUNT 3.3 K/mm3 (4.0-10.0)
[2024-01-18 07:56] LABS: POTASSIUM 4.1 mmol/L (3.5-5.1)
[2024-01-18 08:01] LABS: ALBUMIN 3.1 g/dl (3.4-5.0); CALCIUM 8.7 mg/dL (8.5-10.1)
[2024-01-18 08:02] LABS: BLOOD UREA NITROGEN 14.3 mg/dL (7-18)
[2024-01-18 08:05] LABS: CREATININE 0.4 mg/dL (0.55-1.3); PHOSPHOROUS 2.5 mg/dL (2.5-4.9)
[2024-01-18 08:06] LABS: BILIRUBIN,TOTAL 0.7 mg/dL (0.2-1); TOT PROT 6.8 g/dl (6.4-8.2)
[2024-01-18 11:12] VITALS: BP 136/97; PULSE 87; TEMP 97.7
== END 2024-01-18 11:59 | DRG 178 ==
LOC: JER 12:12 → JERBED 14:20 → J6S 16:55
PROVIDERS: ADMIT Internal Medicine; ATTEND Internal Medicine
DX: J69.0 Pneumonitis due to inhalation of food and vomit (principal); G40.812 Lennox-Gastaut syndrome, not intractable, without status epilepticus; Q67.5 Congenital deformity of spine; N39.0 Urinary tract infection, site not specified; G80.8 Other cerebral palsy; G40.909 Epilepsy, unspecified, not intractable, without status epilepticus; Q02 Microcephaly; F79 Unspecified intellectual disabilities; R09.02 Hypoxemia; Z99.81 Dependence on supplemental oxygen; H47.619 Cortical blindness, unspecified side of brain; B95.2 Enterococcus as the cause of diseases classified elsewhere
CPT/HCPCS: 0241U-QW; 36415; 71045-TC-FY; 80048; 80053; 81003; 82803; 82962; 83605; 83735; 84100; 84484; 85025; 85027; 85610; 85730; 86803; 86850; 86900; 86901; 87086; 87186; 87389; 87635; 93005; 93010; 99285-25; J0475; J1644

== ENCOUNTER 2024-03-30 18:05 | Inpatient (IN) | payer OTHER ==
[2024-03-30] MEDS: SODIUM CHLORIDE 0.9% 1000 ML INFUS.BAG IV STA (20:00)
[2024-03-30 20:15] LABS: BASO % 0.4 % (0-2.0); EOS % 0.4 % (0-4.5); HEMOGLOBIN 13.2 GM/dL (10.7-15.3); LYMPH % 12.6 % (8-40); MCH 32.9 pg (25.7-33.7); MCHC 33.8 g/dl (32.0-36.0); MEAN CELL VOLUME 97.3 fl (80-96); MEAN PLT VOLUME 9.2 fl (7.5-11.1); MONO % 5.2 % (3.8-10.2); NEUT % 81.4 % (42.8-82.8); PLATELET COUNT 191 10^3/uL (134-434); RBC 4.01 M/mm3 (3.60-5.2); RDW 13.5 % (11.6-15.6); WHITE BLOOD COUNT 11.8 K/mm3 (4.0-10.0)
[2024-03-30 20:16] LABS: URINE APPEARANCE CLEAR; URINE BILIRUBIN NEGATIVE (NEGATIVE); URINE COLOR YELLOW; URINE GLUCOSE (UA) NEGATIVE (NEGATIVE); URINE KETONE NEGATIVE (NEGATIVE); URINE LEUK ESTERASE NEGATIVE (NEGATIVE); URINE NITRITE NEGATIVE (NEGATIVE); URINE PROTEIN NEGATIVE (NEGATIVE); URINE UROBILINOGEN 0.2 mg/dL (0.2-1.0)
[2024-03-30] MEDS ORDERED: PIPERACILLIN/TAZOB 4.5 GM 4.5 GM/100 ML BAG IVPB ONE (20:20)
[2024-03-30] MEDS: PIPERACILLIN/TAZOB 4.5 GM 4.5 GM in DEXTROSE 5%-WATER 100 ML IVPB ONE (20:23)
[2024-03-30 20:26] LABS: ACTIVATED PTT 33.4 SECONDS (25.2-36.5); INR 1.06 (0.83-1.09)
[2024-03-30 20:36] LABS: VENOUS BASE EXCESS 3.2 mmol/L (-2-2); VENOUS O2 SATURATION 88.6 % (70-80); VENOUS PCO2 51.8 mmHg (38-52); VENOUS PH 7.378 (7.310-7.410)
[2024-03-30 20:54] LABS: POTASSIUM 4.2 mmol/L (3.5-5.1)
[2024-03-30 20:56] LABS: ALBUMIN 3.4 g/dl (3.4-5.0); BLOOD UREA NITROGEN 12.6 mg/dL (7-18); CALCIUM 9.5 mg/dL (8.5-10.1)
[2024-03-30 21:00] LABS: CREATININE 0.5 mg/dL (0.55-1.3)
[2024-03-30 21:01] LABS: BILIRUBIN,TOTAL 0.2 mg/dL (0.2-1); TOT PROT 7.2 g/dl (6.4-8.2)
[2024-03-30] MEDS ORDERED: VANCOMYCIN 1 GRAM (PRE-DOCKED) 1,000 MG/250 ML BAG IVPB ONE (21:34)
[2024-03-30] MEDS: VANCOMYCIN 1,000 MG in DEXTROSE 5%-WATER - 250 ML IVPB ONE (21:41)
[2024-03-31] MEDS ORDERED: VANCOMYCIN 1 GRAM (PRE-DOCKED) 1,000 MG/250 ML BAG IVPB SCH (02:15)
[2024-03-31] MEDS: PIPERACILLIN/TAZOB 4.5 GM 4.5 GM in DEXTROSE 5%-WATER 100 ML IVPB SCH (03:46)
[2024-03-31] MEDS: PIPERACILLIN/TAZOB 4.5 GM 4.5 GM/100 ML BAG IVPB SCH (03:52)
[2024-03-31] MEDS ORDERED: ALBUTEROL SO4 0.083% IH SOL 2.5 MG/3 ML VIAL.NEB. NEB PRN (07:06)
[2024-03-31 08:54] LABS: HEMATOCRIT 36.5 % (32.4-45.2); HEMOGLOBIN 12.6 GM/dL (10.7-15.3); MCH 33.6 pg (25.7-33.7); MCHC 34.4 g/dl (32.0-36.0); MEAN CELL VOLUME 97.7 fl (80-96); MEAN PLT VOLUME 9.7 fl (7.5-11.1); PLATELET COUNT 144 10^3/uL (134-434); RBC 3.73 M/mm3 (3.60-5.2); RDW 13.3 % (11.6-15.6); WHITE BLOOD COUNT 8.8 K/mm3 (4.0-10.0)
[2024-03-31 09:07] LABS: POTASSIUM 3.8 mmol/L (3.5-5.1)
[2024-03-31 09:10] LABS: CALCIUM 8.9 mg/dL (8.5-10.1)
[2024-03-31 09:11] LABS: ALBUMIN 3.2 g/dl (3.4-5.0); BLOOD UREA NITROGEN 9.2 mg/dL (7-18); MAGNESIUM 1.7 mg/dL (1.8-2.4)
[2024-03-31 09:14] LABS: CREATININE 0.4 mg/dL (0.55-1.3); PHOSPHOROUS 2.5 mg/dL (2.5-4.9)
[2024-03-31 09:15] LABS: BILIRUBIN,TOTAL 0.5 mg/dL (0.2-1); TOT PROT 6.8 g/dl (6.4-8.2)
[2024-03-31] MEDS: diazePAM 2 MG TABLET GT SCH (10:31)
[2024-03-31] MEDS: LORATADINE 10 MG TABLET GT SCH (10:31)
[2024-03-31] MEDS: POLYETHYLENE GLYCOL (HEALTHYLAX) 3350 17 GM PACKET GT SCH (10:31)
[2024-03-31] MEDS: BACLOFEN 10 MG TABLET (FP) GT SCH (10:32)
[2024-03-31] MEDS: Lacosamide 50 MG/5 ML ORAL SOLUTION UNIT CUPS GT SCH (10:33)
[2024-03-31] MEDS: ENOXAPARIN NA (PORCINE) 40 MG/0.4 ML DISP.SYRIN SQ SCH (10:39)
[2024-03-31] MEDS: VANCOMYCIN 1 GRAM (PRE-DOCKED) 1,000 MG/250 ML BAG IVPB SCH (14:26)
[2024-03-31 14:41] VITALS: BMI 25.6
[2024-03-31] MEDS: VANCOMYCIN/WATER FOR INJ (PEG) 1,000 MG/250 ML BAG IVPB SCH (14:45)
[2024-03-31] MEDS: VANCOMYCIN/WATER FOR INJ (PEG) 1,000 MG/200 ML BAG IVPB SCH (14:46)
[2024-03-31] MEDS: [UNRECOGNIZED DRUG - OTHER] GT SCH ×2 (14:46→15:29)
[2024-03-31] MEDS: PATIENT'S OWN MEDICATION (NON-FORMULARY) (Tizanidine Hcl 4 MG Tablet) GT SCH ×2 (14:46→22:01)
[2024-03-31] MEDS: RUFINAMIDE 40 MG/ML GT SCH ×2 (14:46→15:29)
[2024-03-31] MEDS: MAGNESIUM 2GM/50ML STERILE WATER IVPB IVPB ONE (14:47)
[2024-03-31] MEDS: SODIUM CHLORIDE 1,000 ML IV SCH (16:04)
[2024-03-31] MEDS: PIPERACILLIN/TAZOB 3.375 GM 50 ML IVPB SCH (18:36)
[2024-03-31] MEDS: PATIENT'S OWN MEDICATION (NON-FORMULARY) (Olopatadine Hcl [Pataday] 2.5 ML Drops) OU SCH (22:01)
[2024-04-01] MEDS ORDERED: PIPERACILLIN/TAZOB 4.5 GM 4.5 GM in DEXTROSE 5%-WATER 100 ML IVPB SCH (03:00)
[2024-04-01] MEDS ORDERED: ACETAMINOPHEN 1000 MG/100 ML BAG IVPB PRN (06:23)
[2024-04-01] MEDS ORDERED: MELATONIN 5 MG TABLETS PO PRN (06:24)
[2024-04-01] MEDS: hydrOXYzine PAMOATE 25 MG CAPSULE (FP) PO ONE (07:21)
[2024-04-01] MEDS ORDERED: VANCOMYCIN 1 GRAM (PRE-DOCKED) 1,000 MG/250 ML BAG IVPB SCH (10:00)
[2024-04-01 11:27] LABS: BASO % 0.9 % (0-2.0); EOS % 5.5 % (0-4.5); HEMATOCRIT 32.7 % (32.4-45.2); HEMOGLOBIN 11.2 GM/dL (10.7-15.3); LYMPH % 46.4 % (8-40); MCH 33.6 pg (25.7-33.7); MCHC 34.4 g/dl (32.0-36.0); MEAN CELL VOLUME 97.7 fl (80-96); MEAN PLT VOLUME 9.3 fl (7.5-11.1); MONO % 7.6 % (3.8-10.2); NEUT % 39.6 % (42.8-82.8); PLATELET COUNT 157 10^3/uL (134-434); RBC 3.35 M/mm3 (3.60-5.2); RDW 13.4 % (11.6-15.6); WHITE BLOOD COUNT 2.8 K/mm3 (4.0-10.0)
[2024-04-01 11:53] LABS: POTASSIUM 3.6 mmol/L (3.5-5.1)
[2024-04-01 11:56] LABS: ALBUMIN 2.8 g/dl (3.4-5.0); CALCIUM 8.3 mg/dL (8.5-10.1)
[2024-04-01 11:57] LABS: BLOOD UREA NITROGEN 7.9 mg/dL (7-18)
[2024-04-01 12:00] LABS: CREATININE 0.4 mg/dL (0.55-1.3)
[2024-04-01 12:01] LABS: BILIRUBIN,TOTAL 0.2 mg/dL (0.2-1)
[2024-04-01] MEDS: SIMETHICONE 40 MG/0.6 ML BOTTLE PO SCH (15:25)
[2024-04-02] MEDS: ACETAMINOPHEN 1000 MG/100 ML BAG IVPB PRN (06:24)
[2024-04-02 10:54] LABS: BASO % 0.7 % (0-2.0); EOS % 2.5 % (0-4.5); HEMATOCRIT 34.5 % (32.4-45.2); HEMOGLOBIN 11.9 GM/dL (10.7-15.3); LYMPH % 33.6 % (8-40); MCH 33.3 pg (25.7-33.7); MCHC 34.5 g/dl (32.0-36.0); MEAN CELL VOLUME 96.6 fl (80-96); MEAN PLT VOLUME 9.3 fl (7.5-11.1); MONO % 6.5 % (3.8-10.2); NEUT % 56.7 % (42.8-82.8); PLATELET COUNT 176 10^3/uL (134-434); RBC 3.57 M/mm3 (3.60-5.2); RDW 13.1 % (11.6-15.6); WHITE BLOOD COUNT 4.4 K/mm3 (4.0-10.0)
[2024-04-02] MEDS: METOCLOPRAMIDE HCL 10 MG/10 ML UNIT DOSE CUP GT SCH (11:04)
[2024-04-02 11:12] LABS: POTASSIUM 3.6 mmol/L (3.5-5.1)
[2024-04-02 11:14] LABS: CALCIUM 8.5 mg/dL (8.5-10.1)
[2024-04-02 11:15] LABS: BLOOD UREA NITROGEN 10.1 mg/dL (7-18); MAGNESIUM 2.3 mg/dL (1.8-2.4)
[2024-04-02 11:18] LABS: CREATININE 0.4 mg/dL (0.55-1.3); PHOSPHOROUS 2.2 mg/dL (2.5-4.9)
[2024-04-02 11:19] LABS: BILIRUBIN,TOTAL 0.2 mg/dL (0.2-1); TOT PROT 6.4 g/dl (6.4-8.2)
[2024-04-02 14:17] VITALS: RESP 18
[2024-04-02] MEDS: POTASSIUM PHOSPHATE 15 MM in SODIUM CHLORIDE 250 ML IVPB ONE (14:39)
[2024-04-03] MEDS: amLODIPine BESYLATE 5 MG TABLET (FP) PEG ONE (21:03)
[2024-04-04 06:45] VITALS: BP 126/90; PULSE 72; TEMP 99.1
[2024-04-04] MEDS: SIMETHICONE 40 MG/0.6 ML BOTTLE GT SCH (10:37)
== END 2024-04-04 15:49 | DRG 388 ==
LOC: JER 18:05 → JERBED 21:20 → J5S 03-31 03:00
PROVIDERS: ADMIT Internal Medicine; ATTEND Internal Medicine
DX: K56.7 Ileus, unspecified (principal); R53.2 Functional quadriplegia; G40.812 Lennox-Gastaut syndrome, not intractable, without status epilepticus; J98.11 Atelectasis; G40.909 Epilepsy, unspecified, not intractable, without status epilepticus; Q02 Microcephaly; K44.9 Diaphragmatic hernia without obstruction or gangrene
CPT/HCPCS: 0241U-QW; 36415; 71045-TC-FY; 74018-TC-FY; 80053; 81003; 82803; 83605; 83735; 84100; 84484; 85025; 85027; 85610; 85730; 86850; 86900; 86901; 87040; 87086; 87186; 93005; 93010; 99285-25; J0131; J0475